=== PATIENT | female | born 1985 | race Caucasian/White ===

== ENCOUNTER 2024-02-09 12:49 | Outpatient (OUT) | payer OTHER, SELFPAY ==
--- NOTE | 2024-02-09 12:53 | US_ITS ---
The [address] [address] Patient Name: AKBAR FREEMAN MRN: [id number] date: 1985 Sex: F Assigned Patient Location: Current Patient Location: Accession/Order Number: [id number] Exam Date: 02/09/2024 13:15 Report Date: 02/12/2024 15:24 At the request of: BRITTNEY TREJO Procedure: US pelvis w/ transvaginal EXAMINATION: US pelvis w/ transvaginal HISTORY: HEAVY MENSTRUAL BLEEDING N92.0 COMPARISON: No relevant comparison available. TECHNIQUE: Transabdominal and/or transvaginal sonographic examination was performed as indicated by examination type. FINDINGS: UTERUS: Normal size and appearance. Uterus size: 9.8 x 5.3 x 6.8 cm ENDOMETRIUM: Normal homogeneous appearance. Endometrial thickness: 8 mm RIGHT OVARY: Normal size and appearance. Duplex Doppler demonstrates normal waveform and flow; resistive index 0.5. Ovary size: 2.8 x 2.4 x 1.6 cm LEFT OVARY: Not seen. No suspicious adnexal findings. CUL-DE-SAC: Unremarkable. No significant free fluid. BLADDER: Unremarkable. OTHER: None. US/US pelvis w/ transvaginal IMPRESSION: 1. Unremarkable uterus, endometrium, and right ovary. Left ovary could not be seen. Electronically authenticated by: TENNILLE LIGHT Date: 02/12/2024 15:24
[2024-02-09 13:07] LABS: Basophils Absolute Auto 0.1 10^3/uL (0.0-0.1); Basophils Percent Auto 0.7 % (0.2-2.0); Eosinophils Absolute Auto 0.5 10^3/uL (0.0-0.7); Hematocrit 42.9 % (36.0-48.0); Hemoglobin 13.8 g/dL (12.0-16.0); Immature Granulocytes Abs Auto 0.04 10^3/uL (0.00-0.03); Immature Granulocytes Pct Auto 0.4 % (0.0-0.5); Lymphocytes Absolute Auto 2.3 10^3/uL (1.2-3.8); Lymphocytes Percent Auto 24.9 % (20.5-60.0); Mean Corpuscular HGB Conc 32.2 g/dL (29.9-35.2); Mean Corpuscular Hemoglobin 27.8 pg (26.7-34.0); Mean Corpuscular Volume 86.5 fL (81.0-99.0); Mean Platelet Volume 11.3 fL (9.5-13.5); Monocytes Absolute Auto 0.8 10^3/uL (0.3-0.8); Monocytes Percent Auto 8.7 % (1.7-12.0); Neutrophils Absolute Auto 5.6 10^3/uL (1.4-6.5); Neutrophils Percent Auto 60.3 % (43.0-75.0); Platelet Count 241 10^3/uL (150-450); Red Blood Count 4.96 10^6/uL (4.20-5.40); Red Cell Distribution Width 15.9 % (11.0-15.0); White Blood Count 9.4 10^3/uL (4.0-11.0)
[2024-02-09 13:57] LABS: Estimated Average Glucose 123 mg/dL; Glycohemoglobin A1C 5.9 % (4.5-6.2)
[2024-02-09 15:26] LABS: Alanine Aminotransferase 33 U/L (14-59); Albumin Globulin Ratio 0.8; Alkaline Phosphatase 63 U/L (46-116); Anion Gap 11.3; Aspartate Amino Transferase 13 U/L (15-37); BUN Creatinine Ratio 11.1; Bilirubin Total 0.2 mg/dL (0.2-1.0); Calcium 8.5 mg/dL (8.5-10.1); Carbon Dioxide 27.6 mmol/L (21.0-32.0); Chloride 103 mmol/L (98-107); Chol HDL Ratio 5.6; Cholesterol 207 mg/dL (<=200); Estimated GFR (African America >60 (>=60); Estimated GFR (Non-African Ame >60 (>=60); Free T3 2.33 pg/mL (2.18-3.98); Glucose 102 mg/dL (74-106); HDL Cholesterol 37 mg/dL (40-60); Potassium 3.9 mmol/L (3.5-5.1); Sodium 138 mmol/L (136-145); Thyroid Stimulating Hormone 1.522 uIU/mL (0.358-3.740); Triglycerides 149 mg/dL (<=150); VLDL CHOLESTEROL 29.8 mg/dL
== END 2024-02-09 12:50 | disposition home or self-care (01) ==
LOC: US 12:49
PROVIDERS: PCP Nurse Practitioner Family; Visit Provider Nurse Practitioner Family
DX: Z00.00 Encounter for general adult medical examination without abnormal findings (principal); N92.0 Excessive and frequent menstruation with regular cycle
CPT/HCPCS: 36415; 76830; 76856; 80053; 80061; 83036; 83525; 84436; 84443; 84481; 85025

== ENCOUNTER 2024-03-13 05:13 | Emergency (ER) | payer OTHER, SELFPAY ==
[2024-03-13 05:17] VITALS: BP 145/97; PULSE 90; TEMP 37.1; O2SAT 98; BMI 39.4
--- NOTE | 2024-03-13 05:32 | CT_ITS ---
[address] [address] Patient Name: AKBAR FREEMAN MRN: [id number] date: 1985 Sex: F Assigned Patient Location: ER Current Patient Location: ER Accession/Order Number: [id number] Exam Date: 03/13/2024 05:58 Report Date: 03/13/2024 06:26 At the request of: NICKY MARKER Procedure: CT abdomen pelvis w con EXAMINATION: CT abdomen pelvis w con HISTORY: right side abd pain and diarrhea COMPARISON: CT abdomen pelvis 09/23/2021 TECHNIQUE: Axial, Coronal, and Sagittal images were obtained without and/or with IV contrast as indicated by examination type. Dose reduction techniques were achieved by using automated exposure control and/or adjustment of mA and/or kV according to patient size and/or use of iterative reconstruction technique. FINDINGS: LUNG BASES: No visible pulmonary or pleural disease. LIVER: No enlargement, atrophy, suspicious density, or significant focal lesion. BILIARY: No dilatation or calcification. PANCREAS: No lesion, fluid collection, or abnormal duct dilatation. SPLEEN: No enlargement or focal lesion. ADRENALS: No mass or enlargement. KIDNEYS: Stable cortical defect involving posterior lateral mid body of left kidney; possible prior wedge resection. No mass, obstruction, or calcification. BOWEL/MESENTERY: Relatively empty colon but there still appears to be L3 compression wall thickening throughout its length, predominantly involving the distal descending and sigmoid colon. Unremarkable stomach and small bowel. Normal appendix. AORTA/VASCULAR: No aneurysm or dissection. RETROPERITONEUM: No mass or adenopathy. LYMPH NODES: No adenopathy. URINARY BLADDER: No visible focal wall thickening, lesion, or calculus. PELVIC ORGANS: No visible mass. Pelvic organs appropriate for patient age. ABDOMINAL WALL: No mass or hernia. BONES: No bony lesion or fracture. OTHER: Negative. CT/CT abdomen pelvis w con IMPRESSION: 1. Mild colitis. No bowel obstruction. Electronically authenticated by: TENNILLE LIGHT Date: 03/13/2024 06:26
--- NOTE | 2024-03-13 05:49 | ED_ITS ---
HPI - Nausea/Vomiting/Diarrhea General Chief complaint: Nausea/Vomiting/Diarrhea Stated complaint: blood in stool, Time Seen by Provider: 03/13/24 05:21 Source: patient Mode of arrival: walk-in Limitations: no limitations History of Present Illness HPI Narrative: This 38-year-old female presents for evaluation of nausea, diarrhea and rectal pain. The patient states she started having loose stools yesterday around noon and since that time has had multiple episodes of diarrhea that is mucousy in nature with small amount of blood mixed in with mucus. She denies any fever or chills. She has some left lower quadrant abdominal pain and earlier the week had right sided abdominal pain that was in the right lower quadrant and radiated into the right upper abdomen. She states she has had diarrhea so many times that she has rectal pain and burning. She has never had any hemorrhoids. She has never had a colonoscopy. She states she has a family history of Crohn's disease but has never been diagnosed with Crohn's herself. She is not on any GLP-1 medications. She denies any chronic daily medication use. She has not recently traveled out of the country or been exposed anybody with a diarrheal illness to the best of her knowledge. Related Data Home Medications ?Medication ?Instructions ?Recorded ?Confirmed albuterol sulfate 2.5 mg/3 mL mg 03/13/24 (0.083 %) solution for nebulization albuterol sulfate 90 mcg/actuation inhalation 03/13/24 aerosol inhaler budesonide 160 mcg-glycopyr 9 inh inhalation 03/13/24 mcg-formot 4.8 mcg/actuation HFA inhaler (Breztri Aerosphere) omeprazole 40 mg capsule,delayed mg 03/13/24 release tiotropium 2.5 mcg-olodaterol 2.5 inhalation 03/13/24 mcg/actuation mist for inhalation (Stiolto Respimat) Allergies Allergy/AdvReac Type Severity Reaction Status Date / Time No Known Drug Allergies Allergy Verified 03/13/24 05:19 Review of Systems ROS Status of ROS 10 or more systems reviewed and unremark able except as noted in history and below PFSH PFSH Social History Little interest or pleasure in doing things: not at all Feeling down, depressed, or hopeless: not at all Exam Narrative Exam Narrative: Vital signs and Nursing Notes reviewed: Patient is afebrile with a normal pulse, blood pressure is mildly elevated 145/97, she is not hypoxic with pulse ox of 98% on room air General: Awake, alert, oriented, tearful overweight female, no respiratory distress HEENT: Normocephalic atraumatic, mucous membranes are moist and pink, eyes are clear, normal conjunctiva, vision is grossly intact Neck: Supple, no meningeal signs, no anterior or posterior cervical lymphadenopathy Chest: Lungs are clear to auscultation with good air entry, there is no wheezing rhonchi or rales appreciated no accessory muscle use, patient is speaking in complete sentences-no chest wall tenderness to palpation CVS: Regular rate and rhythm S1-S2, no murmurs rubs or gallops, pulses are brisk and equal bilaterally ABD: Obese, soft, nondistended, there is tenderness in the left lower quadrant, right lower quadrant and right upper quadrant with voluntary guarding in the right upper quadrant, there are no pulsatile masses, visual inspection of the rectum was normal without any notable hemorrhoids fissures or bleeding Extremities: Moving all extremities, no lower extremity tenderness or swelling noted, negative Homans' sign, pulses are brisk and equal bilaterally Skin: Normal in appearance without rash,pallor, petechiae or purpura Neuro: No focal deficits Constitutional Vital Signs, click to edit/add: Last Vital Signs Temp 98.7 F 03/13/24 05:17 Pulse 90 03/13/24 05:17 Resp 20 03/13/24 05:17 BP 145/97 H 03/13/24 05:17 Pulse Ox 98 03/13/24 05:17 O2 Del Method Room Air 03/13/24 05:17 Course Vital Signs Vital signs: Vital Signs Temperature 98.7 F 03/13/24 05:17 Pulse Rate 90 03/13/24 05:17 Respiratory Rate 20 03/13/24 05:17 Blood Pressure 145/97 H 03/13/24 05:17 Pulse Oximetry 98 03/13/24 05:17 Oxygen Delivery Method Room Air 03/13/24 05:17 Temperature 98.7 F 03/13/24 05:17 Pulse Rate 90 03/13/24 05:17 Respiratory Rate 20 03/13/24 05:17 Blood Pressure 145/97 H 03/13/24 05:17 Pulse Oximetry 98 03/13/24 05:17 Oxygen Delivery Method Room Air 03/13/24 05:17 MDM - Nausea/Vomiting/Diarrhea MDM Narrative Medical decision making narrative: This 38-year-old female presents for evaluation of abdominal cramps with diarrhea that started yesterday around noon. She has had multiple episodes of mucousy diarrhea with some blood tinged mucus. She is having severe tenesmus and abdominal cramps and pain with bowel movements. She has not had a fever. She denies any travel out of the country or recent antibiotic use. She left work to come to the emergency department because she had had so many bowel movements and has been incontinent of stool several times throughout the day and night yesterday. An IV was placed and she was medicated with IV fluids, Toradol Bentyl and Zofran. Routine labs are reviewed. Her white count is mildly elevated at 13.4. Hemoglobin is stable at 13.6. CT scan of the abdomen pelvis which is included in the body of this report shows evidence of colitis without diverticulitis or bowel obstruction. Comprehensive metabolic profile is normal with exception of a mildly low CO2 indicating some degree of dehydration. She has a normal lactic acid. C. difficile is pending at the time of this dictation and will be signed out to the incoming physician at 7 AM. Anticipate she will be able to be discharged home with antimotility agents Bentyl and Zofran with recommendation for clear liquid diet with slow advancement as tolerated Medical Records Medical records narrative: [place] [address] CT Scan Report Signed Patient: AKBAR FREEMAN MR#: [id number] : 1985 Acct:[id number] Age/Sex: 38 / F ADM Date: 03/13/24 Loc: ER Attending Dr: Ordering Physician: Nicky Freitas Date of Service: 03/13/24 Procedure(s): CT abdomen pelvis w con Accession Number(s): [id number] cc: BRITTNEY TREJO ~ [facility] [place] [id number] Patient Name: AKBAR FREEMAN MRN: [id number] date: 1985 Sex: F Assigned Patient Location: ER Current Patient Location: ER Accession/Order Number: [id number] Exam Date: 03/13/2024 05:58 Report Date: 03/13/2024 06:26 At the request of: NICKY MARKER Procedure: CT abdomen pelvis w con EXAMINATION: CT abdomen pelvis w con HISTORY: right side abd pain and diarrhea COMPARISON: CT abdomen pelvis 09/23/2021 TECHNIQUE: Axial, Coronal, and Sagittal images were obtained without and/or with IV contrast as indicated by examination type. Dose reduction techniques were achieved by using automated exposure control and/or adjustment of mA and/or kV according to patient size and/or use of iterative reconstruction technique. FINDINGS: LUNG BASES: No visible pulmonary or pleural disease. LIVER: No enlargement, atrophy, suspicious density, or significant focal lesion. BILIARY: No dilatation or calcification. PANCREAS: No lesion, fluid collection, or abnormal duct dilatation. SPLEEN: No enlargement or focal lesion. ADRENALS: No mass or enlargement. KIDNEYS: Stable cortical defect involving posterior lateral mid body of left kidney; possible prior wedge resection. No mass, obstruction, or calcification. BOWEL/MESENTERY: Relatively empty colon but there still appears to be L3 compression wall thickening throughout its length, predominantly involving the distal descending and sigmoid colon. Unremarkable stomach and small bowel. Normal appendix. AORTA/VASCULAR: No aneurysm or dissection. RETROPERITONEUM: No mass or adenopathy. LYMPH NODES: No adenopathy. URINARY BLADDER: No visible focal wall thickening, lesion, or calculus. PELVIC ORGANS: No visible mass. Pelvic organs appropriate for patient age. ABDOMINAL WALL: No mass or hernia. BONES: No bony lesion or fracture. OTHER: Negative. CT/CT abdomen pelvis w con IMPRESSION: 1. Mild colitis. No bowel obstruction. Lab Data Attestation: I reviewed the patient's lab results. Labs: Lab Results 03/13/24 Range/Units 05:45 WBC 13.4 H (4.0-11.0) 10^3/uL RBC 4.98 (4.20-5.40) 10^6/uL Hgb 13.6 (12.0-16.0) g/dL Hct 41.3 (36.0-48.0) % MCV 82.9 (81.0-99.0) fL MCH 27.3 (26.7-34.0) pg MCHC 32.9 (29.9-35.2) g/dL RDW 15.3 H (11.0-15.0) % Plt Count 268 (150-450) 10^3/uL MPV 11.9 (9.5-13.5) fL Neut % (Auto) 69.6 (43.0-75.0) % Lymph % (Auto) 18.4 L (20.5-60.0) % [place] % (Auto) 6.9 (1.7-12.0) % Eos % (Auto) 4.1 (0.9-7.0) % Baso % (Auto) 0.6 (0.2-2.0) % Neut # (Auto) 9.3 H (1.4-6.5) 10^3/uL Lymph # (Auto) 2.5 (1.2-3.8) 10^3/uL [place] # (Auto) 0.9 H (0.3-0.8) 10^3/uL Eos # (Auto) 0.6 (0.0-0.7) 10^3/uL Baso # (Auto) 0.1 (0.0-0.1) 10^3/uL Abs Immat Gran (auto) 0.06 H (0.00-0.03) 10^3/uL Imm/Tot Granulo (auto) 0.4 (0.0-0.5) % Sodium 136 (136-145) mmol/L Potassium 3.7 (3.5-5.1) mmol/L Chloride 103 (98-107) mmol/L Carbon Dioxide 20.5 L (21.0-32.0) mmol/L Anion Gap 16.2 BUN 17.0 (7.0-18.0) mg/dL Creatinine 0.94 (0.55-1.02) mg/dL Est GFR ( Amer) >60 (>=60 mL/min/1.73m^2) Est GFR (Non-Af Amer) >60 (>=60 mL/min/1.73m^2) BUN/Creatinine Ratio 18.1 Glucose 138 H (74-106) mg/dL Lactate 1.1 (0.4-2.0) mmol/L Calcium 9.3 (8.5-10.1) mg/dL Total Bilirubin 0.2 (0.2-1.0) mg/dL AST 21 (15-37) U/L ALT 30 (14-59) U/L Alkaline Phosphatase 69 (46-116) U/L Total Protein 7.4 (6.4-8.2) g/dL Albumin 3.2 L (3.4-5.0) g/dL Globulin 4.2 g/dL Albumin/Globulin Ratio 0.8 Discharge Plan Discharge Patient Disposition: Still a Patient
--- OUTSIDE RECORDS SUMMARY | 2024-03-13 05:56 | XMS_ITS | CCD ---
Author Organization [facility] Inform ion Partnership [facility] Care Team Providers Care Automobile Contract Clerk Name Role Phone Yash Simpson. Primary Care Physician REQUEST, NONE LISTED Primary Care Unavaila ble MARKER ., DR SAUNDERS Admitting Unavailable MARKER ., DR SAUNDERS Consulting Unavailable MARKER ., DR SAUNDERS Attending Unavailable DRISS BREWSTER Consulting Unavailable CLAUDIA GIMENEZ Consulting Unavailable REQUEST, NONE LISTED Primary Care Unavaila ble MISC, DR REHMAN Admitting Unavailable MISC, DR REHMAN Consulting Unavailable MISC, DR REHMAN Attending Unavailable JULIANE HWANG Consulting Unavailable REQUEST, DR HEBERT LISTED Primary Care Unavaila ble MISC, DR REHMAN Admitting Unavailable MISC, DR REHMAN Attending Unavailable Wally Joseph Attending Unavailab Wally Osei Admitting Unavailab nano CHRISTIE FAMILY, PHYSICIAN Primary Care Unavailable NO FAMILY, PHYSICIAN Primary Care Provider Maci Joseph, JHON Bazzi Attending Provider Yash Simpson MD Primary Care Provider PROVIDER, UNKNOWN Admitting Unavailable PROVIDER, UNKNOWN Attending Unavailable BRITTNEY TREJO Primary Care Unavailable LOTUS KAPADIA Referring Unavailable Medications Current Medications Medication Drug Class(es) Dates Sig (Normalized) Sig (Original) albuterol 90 mcg/inh inhalation powder (1 source) Start: 02-06-2020 take 1 puff(s) by inhalation every six hours albuterol 90 mcg/inh inhalation powder puff(s), Inhalation, q6hr, Refill(s) 0 Start Date: 02/06/20 Status: Ordered 24 hr mirabegron 50 mg extended release oral tablet (2 sources) beta3-Adrenergic Agonist Start: 10-14-2021 End: 10-09-2022 take 1 tablet by mouth once daily Myrbetriq 50 mg oral tablet, extended release 50 mg = 1 tab(s), Oral, Daily, X 90 day(s), # 90 tab(s), Refills(s) 3, Pharmacy: [id number], 150, cm, 10/14/21 8:14:00 EDT, Height/Length Dosing, 82.1, kg, 10/14/21 8:14:00 EDT, Weight Dosing Start Date: 10/14/21 Stop Date: 10/09/22 Status: Ordered 60 actuat olodaterol 0.0025 mg/actuat / tiotropium 0.0025 mg/actuat inhalation spray (2 sources) Anticholinergic, beta2-Adrenergic Agonist Start: 05-28-2020 Stiolto Respimat 2.5 mcg-2.5 mcg inhalation aerosol puff(s), Inhalation, BID, Refills(s) 0 Start Date: 05/28/20 Status: Ordered Start: 11-10-2019 tiotropium-olo daterol (STIOLTO RESPIMAT) 2.5-2.5 mcg/actuation puff(s), Inhalation, BID, Refills(s) 0 0 11/10/2019 Active Comment on above: puff(s), Inhalation, BID, Refills(s) 0 Stiolto Respimat 2.5 mcg-2.5 mcg inhalation aerosol (1 source) Start: 05-28-2020 Stiolto Respimat 2.5 mcg-2.5 mcg inhalation aerosol puff(s), Inhalation, BID, Refills(s) 0 Start Date: 05/28/20 Status: Ordered Completed/Discontinued Medications Medication Drug Class(es) Dates Sig (Normalized) Sig (Original) acetaminophen 500 mg oral tablet (1 source) Start: 11-04-2020 take 2 tablets by mouth every eight hours as needed acetaminophen (TYLENOL EXTRA STRENGTH) 500 mg tablet Take 2 tablets by mouth every 8 hours as needed for Pain. 30 tablet 0 11/04/2020 Active Comment on above: Take 2 tablets by [facility] every 8 hours as needed for Pain. 200 actuat albuterol 0.09 mg/actuat dry powder inhaler (3 sources) beta2-Adrenergic Agonist Start: 02-06-2020 take 1 puff(s) by inhalation every six hours albuterol sulfate 90 mcg/actuation breath activated powder inhaler puff(s), Inhalation, q6hr, Refill(s) 0 0 02/06/2020 Active Start: 02-06-2020 take 1 puff(s) by in halation every six hours albuterol 90 mcg/inh inhalation powder puff(s), Inhalation, q6hr, Refill(s) 0 Start Date: 02/06/20 Status: Ordered Start: 10-10-2019 ALBUTEROL INHA LATION Comment on above: puff(s), Inhalation, q6hr, Refill(s) 0 Norethindrone (1 source) Start: 02-10-2020 Norethindrone, Contraceptive, (INCASSIA) 0.35 mg tablet omeprazole 20 mg delayed release oral capsule (3 sources) Proton Pump Inhibitor Start: 02-10-2020 omeprazole (PRILOSEC) 20 mg capsule Start: 02-06-2020 omeprazole Ora l, Daily, Refills(s) 0 Start Date: 02/06/20 Status: Ordered Problems Problem Classification Problem Date Documented Da te Episodic/Chronic Abdominal pain (4 sources) Abdominal pain; Translations: [Right flank pain] 02-06-2020 Episodic Cancer of kidney and renal pelvis (4 sources) Malignant tumor of kidney; Translations: [Malignant neoplasm of unspecified kidney, except renal pelvis] Onset: 10-14-2021 Chronic Genitourinary symptoms and ill-defined conditions (8 sources) Mixed incontinence; Translations: [Genuine stress incontinence] Onset: 10-14-2021 Chronic Genitourinary symptoms and ill-defined conditions (10 sources) Sensation as if bladder still full; Translations: [Feeling of incomplete bladder emptying] Onset: 10-14-2021 Episodic Other connective tissue disease (4 sources) Pain in right arm; Translations: [PAIN IN RIGHT ARM] Onset: 11-07-2022 Episodic Other connective tissue disease (3 sources) Myalgia, other site; Translations: [MYALGIA OTHER SITE] Onset: 10-25-2022 Episodic Other diseases of bladder and urethra (4 sources) Urethral stricture; Translations: [Other urethral stricture, female] Onset: 10-14-2021 Episodic Other diseases of kidney and ureters (2 sources) Renal mass 08-30-2020 Chronic Other injuries and conditions due to external causes (1 source) Unspecified injury of muscle, fascia and tendon of other parts of biceps, right arm, initial encounter; Translations: [UNS INJ M AND T OTH PRT BIC RT ARM INIT] Onset: 10-27-2022 Episodic Other nutritional; endocrine; and metabolic disorders (1 source) Body mass index 40+ - severely obese; Translations: [Morbid (severe) obesity due to excess calories] Onset: 11-04-2020 11-04-2020 Chronic Other screening for suspected conditions (not mental disorders or infectious disease) (1 source) Encounter for screening mammogram for malignant neoplasm of breast; Translations: [Encounter for screening mammogram for malignant neoplasm of breast] Onset: 02-27-2024 Episodic Substance-related disorders (1 source) Nicotine dependence; Translations: [Nicotine dependence, unspecified, uncomplicated] Onset: 11-25-2020 11-25-2020 Chronic Unclassified (2 sources) Finding of sensation of bladder 04-11-2021 Unclassified (1 source) Lateral epicondylitis, right elbow; Translations: [Lateral epicondylitis, right elbow] Onset: 01-29-2023 Urinary tract infections (2 sources) Urinary tract infectious disease 04-11-2021 Episodic Results Test Name Value Interpretation Reference Range Facil ity MG MAMMO SCREEN BILAT ANNALISA W /CADon 03-03-2024 MG MAMMO SCREEN BILAT ANNALISA W/CAD EXAM: BILATERAL SCREENING MAMMOGRAM W/TOMOSYNTHESIS AND CAD CLINICAL HISTORY: Patient is 38 years old and is seen for screening. The patient has a history of kidney cancer at age 36. The patient has no family history of breast cancer. COMPARISON: This is a baseline study. TECHNIQUE: The following mammographic views were obtained: bilateral CC with tomosynthesis, MLO with tomosynthesis and XCCL with tomosynthesis. Computer-aided detection was utilized by the radiologist in the interpretation of this examination. MAMMOGRAM FINDINGS: There are scattered areas of fibroglandular densities. There are multiple bilateral circumscribed masses which is typically a benign pattern. IMPRESSION: There is no mammographic evidence of malignancy. Routine screening mammogram in 1 year is recommended. BI-RADS Category 2: Benign RISK ASSESSMENT: Estimated lifetime breast cancer risk: Average (less than 15%, as per the Tyrer-Cuzick/BEAR model) NCI Lifetime Risk Score: 9.9% Normal [facility] MRI ELBOW RT WO CONon 2022 MRI ELBOW RT WO CON EXAM: MRI ELBOW RT WO CON HISTORY: Pain in right arm injured right arm at work on machine. COMPARISON: Right arm x-rays 10/25/2022. TECHNIQUE: Multi planar, multisequence MR imaging of the right elbow without contrast. Findings: Bones and cartilage: No acute fracture or malalignment. No focal bone marrow edema. No articular erosions. No osteochondral abnormality. No joint effusion. Muscles and tendons: The biceps, common flexor, brachialis and biceps brachii tendons are intact. There is a partial tear involving the origin of the common extensor tendon measuring approximately 0.4 x 0.2 cm. Ligaments: The radial and ulnar collateral ligaments are grossly intact within the limits of this nonarthrogram study. Miscellaneous: The visualized portions of the median, ulnar and radial nerves are unremarkable. IMPRESSION: 1. Partial tearing of the origin of the common extensor tendon. Electronically authenticated by: JULIANE HWANG Date: 2022-11-07 10:53 Normal [facility] XR ELBOW RT MIN 3 VIEWSon XR ELBOW RT MIN 3 VIEWS EXAM: XR ELBOW RT MIN 3 VIEWS HISTORY: Right elbow pain; technologist notes state clips at work and heard a pop in the right elbow and right elbow pain that radiates into the shoulder. COMPARISON: Right humerus series dated 10/25/2022. TECHNIQUE: Routine 3 view right elbow series. FINDINGS: The bony alignment and mineralization are normal. There is no fracture. The joint spaces are normal. There are no degenerative/arthriti c changes. There is no joint effusion at the elbow. No soft tissue abnormality is seen. IMPRESSION: Unremarkable right elbow series. MRI of the right elbow would be performed if there is clinical concern for internal derangement. Electronically authenticated by: DRISS BREWSTER Date: 2022-10-25 04:24 Normal [facility] XR HUMERUS RT MIN 2 Von 05- XR HUMERUS RT MIN 2 V EXAM: XR HUMERUS RT MIN 2 V HISTORY: Pain of right elbow joint COMPARISON: Right shoulder x-ray performed 07/17/2020. TECHNIQUE: 2 views of the right humerus are obtained. FINDINGS: There is no focal soft tissue abnormality. Osseous mineralization is within normal limits. No acute fracture or dislocation is identified. The glenohumeral and elbow joints appear grossly maintained. IMPRESSION: No acute fracture or dislocation. Electronically authenticated by: CLAUDIA GIMENEZ Date: 2022-10-25 04:23 Normal [facility] Patient Educationon 10-15-19 Patient Education Obstetrics and Gynecology Overactive Bladder, Adult Overactive bladder refers to a condition in which a person has a sudden need to pass urine. The person may leak urine if he or she cannot get to the bathroom fast enough (urinary incontinence). A person with this condition may also wake up several times in the night to go to the bathroom. Overactive bladder is associated with poor nerve signals between your bladder and your brain. Your bladder may get the signal to empty before it is full. You may also have very sensitive muscles that make your bladder squeeze too soon. These symptoms might interfere with daily work or social activities. What are the causes? This condition may be associated with or caused by: ? Urinary tract infection. ? Infection of nearby tissues, such as the prostate. ? Prostate enlargement. ? Surgery on the uterus or urethra. ? Bladder stones, inflammation, or tumors. ? Drinking too much caffeine or alcohol. ? Certain medicines, especially medicines that get rid of extra fluid in the body (diuretics). ? Muscle or nerve weakness, especially from: ? A spinal cord injury. ? Stroke. ? Multiple sclerosis. ? Parkinson's disease. ? Diabetes. ? Constipation. What increases the risk? You may be at greater risk for overactive bladder if you: ? Are an older adult. ? Smoke. ? Are going through menopause. ? Have prostate problems. ? Have a neurological disease, such as stroke, dementia, Parkinson's disease, or multiple sclerosis (MS). ? Eat or drink things that irritate the bladder. These include alcohol, spicy food, and caffeine. ? Are overweight or obese. What are the signs or symptoms? Symptoms of this condition include: ? Sudden, strong urge to urinate. ? Leaking urine. ? Urinating 8 or more times a day. ? Waking up to urinate 2 or more times a night. How is this diagnosed? Your health care provider may suspect overactive bladder based on your symptoms. He or she will diagnose this condition by: ? A physical exam and medical history. ? Blood or urine tests. You might need bladder or urine tests to help determine what is causing your overactive bladder. You might also need to see a health care provider who specializes in urinary tract problems (urologist). How is this treated? Treatment for overactive bladder depends on the cause of your condition and whether it is mild or severe. You can also make lifestyle changes at home. Options include: ? Bladder training. This may include: ? Learning to control the urge to urinate by following a schedule that directs you to urinate at regular intervals (timed voiding). ? Doing Kegel exercises to strengthen your pelvic floor muscles, which support your bladder. Toning these muscles can help you control urination, even if your bladder muscles are overactive. ? Special devices. This may include: ? Biofeedback, which uses sensors to help you become aware of your body's signals. ? Electrical stimulation, which uses electrodes placed inside the body (implanted) or outside the body. These electrodes send gentle pulses of electricity to strengthen the nerves or muscles that control the bladder. ? Women may use a plastic device that fits into the vagina and supports the bladder (pessary). ? Medicines. ? Antibiotics to treat bladder infection. ? Antispasmodics to stop the bladder from releasing urine at the wrong time. ? Tricyclic antidepressants to relax bladder muscles. ? Injections of botulinum toxin type A directly into the bladder tissue to relax bladder muscles. ? Lifestyle changes. This may include: ? Weight loss. Talk to your health care provider about weight loss methods that would work best for you. ? Diet changes. This may include reducing how much alcohol and caffeine you consume, or drinking fluids at different times of the day. ? Not smoking. Do not use any products that contain nicotine or tobacco, such as cigarettes and e-cigarettes. If you need help quitting, ask your health care provider. ? Surgery. ? A device may be implanted to help manage the nerve signals that control urination. ? An electrode may be implanted to stimulate electrical signals in the bladder. ? A procedure may be done to change the shape of the bladder. This is done only in very severe cases. Follow these instructions at home: Lifestyle ? Make any diet or lifestyle changes that are recommended by your health care provider. These may include: ? Drinking less fluid or drinking fluids at different times of the day. ? Cutting down on caffeine or alcohol. ? Doing Kegel exercises. ? Losing weight if needed. ? Eating a healthy and balanced diet to prevent constipation. This may include: ? Eating foods that are high in fiber, such as fresh fruits and vegetables, whole grains, and beans. ? Limiting foods that are high in fat and processed sugars, such as fried and sweet foods. General instructions ? Take ove (more content not included)... Normal [facility] Urology Office/Clinic Noteon 10-14-2021 Urology Office/Clinic Note Chief Complaint 6 month follow up HPI Staff Leah is here today for a 6 month follow up with XR chest done on 05/01/[address] abd/pelvis done on 09/23/21.Impression of XR of chest showed stable right middle lobe opacity, chronic atelectasis/scar favored.CT abd/pelvis showed stable change of partial left nephrotomy without evidence of local recurrence of metastatic disease in abdomen or pelvis.Previous DX: abdominal pain, feeling of incomplete bladder emptying, incontinence without sensory awareness, mixed incontinence, other urethral stricture female, renal cell carcinoma, renal mass, rt flank pain, urgency of urination,urinary frequency,UTI. S/p Partial nephrectomy 11/04/20, urodynamics 06/01/20. PVR done on 04/11/21 was 21ml. PVR today was 0ml. Dysuria: _Denies Incomplete bladder emptying: _pt states she is not emptying Hematuria: _Denies Frequency: _every 30 minutes Urgency: _Denies Nocturia: _Denies Stream: _varies and sprays all over. Leaking: _yes Post void dripping: _yes Wearing pads/ Depends: _yes changes 2-3 times a day. Urge incontinence: _yes Stress incontinence: _yes coughing or sneezing Incontinence without Sensory Awareness: _Denies Abdominal pain: _Denies Flank pain: _pt states she is feeling a sharp pain in her stomach that migrates to her back by her kidneys. Sexual complaints: _ History of Present Illness I have reviewed and verified the staff HPI to be accurate for this encounter. Review of Systems PHQ Score Initial Depression Screen Score: 0 ROS - Provider Constitutional: denies weight loss, denies hot flashes. Eyes: denies eye problems. Gastrointestinal: denies nausea, denies vomiting. Cardiovascular: denies chest pain or angina. Integumentary: no dryness Musculoskeletal: denies musculoskeletal symptoms. ENMT: denies otolaryngeal symptoms. Respiratory: no shortness of breath. Heme/Lymph: denies easy bleeding tendency, denies easy bruising tendency. Psychiatric: no confusion, no anxiety. Genitourinary: denies vaginal discharge, denies incontinence, denies dysuria, denies hematuria, denies urinary frequency, denies amenorrhea, denies menorrhagia, denies abnormal bleeding, denies pelvic pain, denies genital sores, and denies decreased libido. Physical Exam Vitals & Measurements HR: 97(Peripheral) RR: 16 BP: 139/91 HT: 150.0 cm HT: 150 cm WT: 82.1 kg WT: 82.1 kg BMI: 36.49 General Appearance: alert , no acute distress, well nourished, well developed female. Genitourinary: bladder nonpalpable, no flank pain. Assessment/Plan 1. Renal cell carcinoma (C64.9: Malignant neoplasm of unspecified kidney, except renal pelvis) S/p Partial nephrectomy 11/04/20. Patient is here today for a 6 month f/u and to review results of CT on 09/23/21, testing shows abd/pelvis showed stable change of partial left nephrotomy without evidence of local recurrence of metastatic disease in abdomen or pelvis. Results from [facility] shows 0.85 Creatine, which shows a positive functioning of patient's kidney. 2. Mixed incontinence (N39.46: Mixed incontinence) Ongoing. Patient reports both stress and urge incontinence. States she is changing her pad 2-3x a day. During work, she changes her pads every 2 hours. 3. Feeling of incomplete bladder emptying (R39.14: Feeling of incomplete bladder emptying) PVR last visit was 21mL, today it reads-0mL. 4. Other urethral stricture, female (N35.82: Other urethral stricture, female) S/p Cysto/UD 06/01/2020. Patient shares she experiences pain, and dysuria related sx in the night. this is from a full bladder not infection. 5. Urinary frequency (R35.0: Frequency of micturition) Patient states she is going to the bathroom every 30 minutes. Patient shares that she has several episodes of rushing to void. Mentioned to patient to start medication to improve frequency, urgency and leaking accidents. Educated patient this medication would not remediate her stress incontinence, only her episodes of frequency and urge incontinence. Will send prescription to [facility] in [place]. Follow-up With When Contact Information Vidal GALICIA MD, URL In 3 months 01/14/2022 EDT [facility] [address] [place] [address]- Additional Instructions: Patient Education Urinary Incontinence Overactive Bladder, Adult I, Bebe Wright, personally scribed for Dr. Galicia on 10/14/2021 08:48:14. . Documentation recorded by the Bebe jones, accurately reflects the services(s) I performed and decisions made by me. Authenticated by Dr. Galicia on 10/14/2021 08:52:26. Problem List/Past Medical History Ongoing Abdominal pain Feeling of incomplete bladder emptying Incomplete bladder emptying Incontinence without sensory awareness Mixed incontinence Other urethral stricture, female Renal cell carcinoma Renal mass Rt flank pain Stress incontinence Urgency of urination Urinary frequency UTI (urinary tr (more content not included)... [facility] Comment on above: Result Comment: Elec tronically Signed By: Vidal GALICIA MD\.br\Date and Time Signed: 10/14/21 08:52 EDT\.br\Electronically Co-Signed By: Bebe Wright\.br\Date and Time Co-Signed: 10/14/21 08:48 EDT Lab Reportson 09-27-2021 Lab Reports [id number] .00CD:127 [facility] RAD - CT Reporton 09-27-20[address] RAD - CT Report [id number] .00CD:127 [facility] Pre-Certification Formon Pre-Certification Form [id number] .00CD:127 [facility] Reminderson 09-09-2021 Reminders - From: Mitali Clark To: [facility] - Recalls Galicia; Sent: 04/25/2021 13:46:17 EST Show up: 08/23/2021 14:46:00 EDT Subject: CT abd/pel with contrast Due Date/Time: 09/23/2021 14:46:00 EDT Reminder Message Pt. needs CT AP w/ contrast prior to 10/14/2021 appt. left vm for pt to call office order sent to [facility] Lab Reportson 04-25-2021 Lab Reports [id number] .00CD:127 [facility] RAD - CT Reporton 04-25-2021 RAD - CT Report [id number] .00CD:127 [facility] RAD - MISCon 04-25-2021 RAD - MISC [id number] .00CD:127 [facility] Pre-Certification Formon Pre-Certification Form [id number] .00CD:127 [facility] Reminderson 04-22-2021 Reminders - From: Ashanti Arellano To: [facility] - Clinical; Sent: 04/11/2021 09:46:13 EDT Show up: 04/15/2021 09:46:00 EDT Subject: CT scan and CXR Due Date/Time: 04/18/2021 09:46:00 EST Reminder/Recall Order was faxed to [place] [facility] for CT scan Abd/pelvis with and CXR to be scheduled after auth approval SHOW PRW results, pt to be called no results yet no results Pt was schedule 04/22/21 @ [facility] at 2:30- results will be in her chart Sunday- please send to [facility] to review thank you [facility] Ambulatory Clinical Summaryo n 04-11-2021 Ambulatory Clinical Summary {[id number]}CD:[id number] [facility] Patient Educationon 04-11-20 Patient Education Urology Urinary Incontinence Urinary incontinence refers to a condition in which a person is unable to control where and when to pass urine. A person with this condition will urinate when he or she does not mean to (involuntarily). What are the causes? This condition may be caused by: ? Medicines. ? Infections. ? Constipation. ? Overactive bladder muscles. ? Weak bladder muscles. ? Weak pelvic floor muscles. These muscles provide support for the bladder, intestine, and, in women, the uterus. ? Enlarged prostate in men. The prostate is a gland near the bladder. When it gets too big, it can pinch the urethra. With the urethra blocked, the bladder can weaken and lose the ability to empty properly. ? Surgery. ? Emotional factors, such as anxiety, stress, or post-traumatic stress disorder (PTSD). ? Pelvic organ prolapse. This happens in women when organs shift out of place and into the vagina. This shift can prevent the bladder and urethra from working properly. What increases the risk? The following factors may make you more likely to develop this condition: ? Older age. ? Obesity and physical inactivity. ? and childbirth. ? Menopause. ? Diseases that affect the nerves or spinal cord (neurological diseases). ? Long-term (chronic) coughing. This can increase pressure on the bladder and pelvic floor muscles. What are the signs or symptoms? Symptoms may vary depending on the type of urinary incontinence you have. They include: ? A sudden urge to urinate, but passing urine involuntarily before you can get to a bathroom (urge incontinence). ? Suddenly passing urine with any activity that forces urine to pass, such as coughing, laughing, exercise, or sneezing (stress incontinence). ? Needing to urinate often, but urinating only a small amount, or constantly dribbling urine (overflow incontinence). ? Urinating because you cannot get to the bathroom in time due to a physical disability, such as arthritis or injury, or communication and thinking problems, such as Alzheimer disease (functional incontinence). How is this diagnosed? This condition may be diagnosed based on: ? Your medical history. ? A physical exam. ? Tests, such as: ? Urine tests. ? X-rays of your kidney and bladder. ? Ultrasound. ? CT scan. ? Cystoscopy. In this procedure, a health care provider inserts a tube with a light and camera (cystoscope) through the urethra and into the bladder in order to check for problems. ? Urodynamic testing. These tests assess how well the bladder, urethra, and sphincter can store and release urine. There are different types of urodynamic tests, and they vary depending on what the test is measuring. To help diagnose your condition, your health care provider may recommend that you keep a log of when you urinate and how much you urinate. How is this treated? Treatment for this condition depends on the type of incontinence that you have and its cause. Treatment may include: ? Lifestyle changes, such as: ? Quitting smoking. ? Maintaining a healthy weight. ? Staying active. Try to get 150 minutes of moderate-intensity exercise every week. Ask your health care provider which activities are safe for you. ? Eating a healthy diet. ? Avoid high-fat foods, like fried foods. ? Avoid refined carbohydrates like white bread and white rice. ? Limit how much alcohol and caffeine you drink. ? Increase your fiber intake. Foods such as fresh fruits, vegetables, beans, and whole grains are healthy sources of fiber. ? Pelvic floor muscle exercises. ? Bladder training, such as lengthening the amount of time between bathroom breaks, or using the bathroom at regular intervals. ? Using techniques to suppress bladder urges. This can include distraction techniques or controlled breathing exercises. ? Medicines to relax the bladder muscles and prevent bladder spasms. ? Medicines to help slow or prevent the growth of a man's prostate. ? Botox injections. These can help relax the bladder muscles. ? Using pulses of electricity to help change bladder reflexes (electrical nerve stimulation). ? For women, using a medical equipment repairer to prevent urine leaks. This is a small, tampon-like, disposable device that is inserted into the urethra. ? Injecting collagen or carbon beads (bulking agents) into the urinary sphincter. These can help thicken tissue and close the bladder opening. ? Surgery. Follow these instructions at home: Lifestyle ? Limit alcohol and caffeine. These can fill your bladder quickly and irritate it. ? Keep yourself clean to help prevent odors and skin damage. Ask your doctor about special skin creams and cleansers that can protect the skin from urine. ? Consider wearing pads or adult diapers. Make sure to change them regularly, and always change them right after experiencing incontinence. General instructions ? Take [id number]-[id number] and prescription medicines only as (more content not included)... Normal [facility] Urology Office/Clinic Noteon 04-11-2021 Urology Office/Clinic Note Chief Complaint 7 month f/u HPI Staff 35 year old female here today for f/u. Previous dx of urinary frequency, mixed incontinence, urgency, incomplete bladder emptying, UTI and renal mass (partial nephrectomy 11/04/20). PVR today is 21ml. Dysuria: no Incomplete bladder emptying: pt feels she is not emptying Hematuria: no Frequency: yes pt states she is doing timed voids every 2 hours Urgency: yes Nocturia: pt states she does not get up Stream: varies and sprays all over Leaking: yes Post void dripping: no Wearing pads/ Depends: yes changes 2-3x Urge incontinence: yes sometimes Stress incontinence: yes Incontinence without Sensory Awareness: no Abdominal pain: no Flank pain: left sided sharp every now and then and states that it shoots down to her hip Sexual complaints: no History of Present Illness Reviewed partial nephrectomy op and path report. There have been no associated fever, chills, flank pain or blood in the urine. Pt. denies any pain/burning with urination at this time. Review of Systems PHQ Score Initial Depression Screen Score: 0 ROS - Provider Constitutional: denies weight loss, denies hot flashes. Eyes: denies eye problems. Gastrointestinal: denies nausea, denies vomiting. Cardiovascular: denies chest pain or angina. Integumentary: no dryness Musculoskeletal: denies musculoskeletal symptoms. ENMT: denies otolaryngeal symptoms. Respiratory: no shortness of breath. Heme/Lymph: denies easy bleeding tendency, denies easy bruising tendency. Psychiatric: no confusion, no anxiety. Genitourinary: denies vaginal discharge, moderate incontinence, denies dysuria, denies hematuria, denies urinary frequency, denies amenorrhea, denies menorrhagia, denies abnormal bleeding, denies pelvic pain, denies genital sores, and denies decreased libido. Physical Exam Vitals & Measurements HR: 83(Peripheral) RR: 16 BP: 137/100 HT: 150 cm HT: 150.0 cm WT: 82.1 kg WT: 82.1 kg BMI: 36.49 General Appearance: alert , no acute distress, well nourished, well developed female. Genitourinary: bladder nonpalpable, no flank pain. Assessment/Plan 1. Renal cell carcinoma (C64.9: Malignant neoplasm of unspecified kidney, except renal pelvis) S/p Lt. robotic partial nephrectomy done 11/04/2020 (2.7cm). Clear cell subtype, ISUP grade 2. clear margins. Pt. is healing well. Will have pt. obtain a CT and chest x-ray soon and will call pt. with results. All questions/concerns were discussed. Pt. to call the office if sheencounters any issues prior. Pt. acknowledges understanding. 2. Mixed incontinence (N39.46: Mixed incontinence) Ongoing. Moderate - severe. Stress incontinence is worse. Pads changed 2-3x/day. I discussed with the pt. possibly considering a sling procedure but she understands that we'll need to do a cystoscopy first. Pt. will consider this. 3. UTI (urinary tract infection) (N39.0: Urinary tract infection, site not specified) Previously treated with Macrobid. UA today shows no signs of infection. 4. Feeling of incomplete bladder emptying (R39.14: Feeling of incomplete bladder emptying) PVR today - 21ml vs. 111ml previously. 5. Other urethral stricture, female (N35.82: Other urethral stricture, female) S/p Cysto/UD 06/01/2020. I have reviewed the previous health record information and history for this pt. from Dr. Galicia. Follow-up With When Contact Information RYAN MULLER, Vidal Jaeger, URL [address] [place] [address] [place] [address]- [phone] Additional Instructions: 6mos. f/u Patient Education Urinary Incontinence I, Archana Oliveros , personally scribed for Dr. Galicia on 04/11/2021 09:39:09. . Documentation recorded by the scribe, Archana Oliveros, accurately reflects the services(s) I performed and decisions made by me. Authenticated by Dr. Galicia on 04/11/2021 09:41:54. Problem List/Past Medical History Ongoing Abdominal pain Feeling of incomplete bladder emptying Incomplete bladder emptying Incontinence without sensory awareness Mixed incontinence Other urethral stricture, female Renal cell carcinoma Renal mass Rt flank pain Stress incontinence Urgency of urination Urinary frequency UTI (urinary tract infection) Historical No qualifying data Procedure/Surgical History Partial nephrectomy (11/04/2020), Urodynamics (06/01/2020), Bilateral tubal ligation, section, section. Medications albuterol 90 mcg/inh inhalation powder, Inhalation, q6hr Macrobid 100 mg Cap, 100 mg= 1 cap(s), Oral, BID omeprazole, Oral, Daily Stiolto Respimat 2.5 mcg-2.5 mcg inhalation aerosol, Inhalation, BID Allergies No Known Allergies Social History Alcohol - Denies Alcohol Use, 02/06/2020 Tobacco 10 or more cigarettes (1/2 pack or more)/day in last 30 days Tobacco Use:. Never Smokeless Tobacco Use:. Cigarettes, 02/06/2020 Cigarettes, 1 per day. 10 year(s). Total pack years: 10., 10/05/ (more content not included)... Normal [facility] Comment on above: Result Comment: Elec tronically Signed By: RYAN MULLER, Vidal Jaeger\.br\Date and Time Signed: 04/11/21 09:41 EDT\.br\Electronically Co-Signed By: Archana Oliveros MA\.br\Date and Time Co-Signed: 04/11/21 09:39 EDT Vital Signs Date Time Vital Sign Value Performing Clinician Anaid carbajal 10-14-2021 08:19-0400 Diastolic blood pressure 91 mm[Hg] Vidal GALICIA [facility] 10-14-2021 08:19-0400 Mean blood pressure 107 mm[Hg] Vidal GALICIA [facility] 10-14-2021 08:19-0400 Systolic blood pressure 139 mm[Hg] [facility]ICIA [facility] [place] 10-14-2021 08:04-0400 Blood Pressure Location Vidal GALICIA [facility] [place] 10-14-2021 08:04-0400 Diastolic blood pressure 93 mm[Hg] Vidal GALICIA [facility] 10-14-2021 08:04-0400 Heart rate 97 /min [facility]IC[facility] [place] 10-14-2021 08:04-0400 Respiratory rate 16 /min Vidal GALICIA [facility] [place] 10-14-2021 08:04-0400 Systolic blood pressure 144 mm[Hg] Vidal GALICIA [facility] [place] Encounters Encounter Date Encounter Type Care Provider Facility Start: 02-27-2024 ambulatory UNKNOWN PROVIDER Facili ty:[facility] Start: 08-23-2023 ambulatory Colton Holly MA [facility] Start: 08-23-2023 Patient encounter procedure Colton Holly MA [facility] Comment on above: Community Outreach ( [facility]erral/Mammogram) Start: 01-29-2023 End: 01-29-2023 ambulatory Wally Joseph Facility:[facility] Start: 01-29-2023 End: 01-29-2023 ambulatory PHYSICIAN NO [facility] Work Phone: Start: 01-29-2023 End: 01-29-2023 Discharged Recurring PHYSICIAN NO [facility] [place] Work Phone: Start: 11-07-2022 End: 11-08-2022 ambulatory NONE LISTED REQUEST Facility: Start: 11-04-2022 ambulatory NONE LISTED REQUEST Facility:[facility] Start: 10-25-2022 End: 10-25-2022 ambulatory NONE LISTED REQUEST Facility: Start: 01-16-2022 End: 01-16-2022 Patient encounter procedure Vidal GALICIA [facility] Start: 10-14-2021 End: 10-14-2021 Patient encounter procedure Vidal GALICIA [facility] Procedures Date Procedure Procedure Detail Performing Clinician Start: 11-04-2020 Partial nephrectomy Alice jenni GALICIA Start: 06-01-2020 Urodynamic studies Roger GALICIA Bilateral tubal ligation Alice GALICIA section Vidal POON Plan of Treatment Date Care Activity Detail Author Start: 06-11-2023 Depression Assessment Depression Ass essment [facility] Start: 2023 Screening for malign ant neoplasm of breast Mammogram Screening [facility] Start: 02-09-2023 Covid-19 Vaccine ( season) Covid-19 Vaccine () [facility] Start: 02-09-2023 Influenza vaccination Influenza Vacc ine (#1) [facility] Start: 2013 Screening for malign ant neoplasm of cervix HPV Testing [facility] Start: 2004 Screening for malign ant neoplasm of cervix Pap Testing [facility] Start: 2002 Hepatitis B Vaccine (1 of 3 - 19+ 3-dose series) Hepatitis B Vaccine (1 of 3 - 19+ 3-dose series) [facility] Start: 2002 Urine microalbumin profile DTaP,Tdap,Td Vaccine (1 - Tdap) [facility] Start: 2001 Hepatitis C screening Hepatitis C Sc amaury [facility] Start: 2001 HIV screening HIV Screening [facility] jimena [facility] Start: 1989 Pneumococcal vaccination Pneum ococcal Vaccine (1 of 2 - PCV) [facility] Immunizations Immunization Date Immunization Notes Care Provider Zelalem lubnabrodie 03-27-2019 influenza virus vaccine, unspecified formulation Colton Holly MA [facility] NEGATED: Highlighted row has not occurred!05-28-2020 influenza virus vaccine, unspecified formulation Vidal GALICIA [facility] Payers Date Payer Category Payer Self-pay 2020 Private Health Insurance [facility] [employer] [id number] 2020-Present [address] [address] [place] [address] PPO [id number] 1983 Unknown [id number] 1983 Unknown [id number] 1983 Unknown [id number] 1983 Unknown [id number] 1959 Unknown [id number] 1959 Unknown [id number] 1959 Unknown Medicaid [facility] [id number] Unknown [id number] Unknown Richard ROBLES/BS [id number] Social History Date Type Detail Facility Start: 02-06-2020 Tobacco smoking status Heavy t obacco smoker (finding) [facility] Tobacco smoking status Never [facility] [employer] Start: 10-15-2020 End: 07-06-2021 Sex Assigned At Female [facility] [employer] Start: 1985 Sex Assigned At Female F [facility] Start: 10-15-[address] [facility] Start: 10-15-2020 Tobacco use and exposure Smokeless tobacco non-user [facility] Start: 10-15-2020 End: 07-06-2021 History of Social function [facility] Start: 10-09-2020 Gender identity Identifies as female gender (finding) [facility] Start: 10-09-2020 Sexual orientation Heterosexual (fin ding) [facility] Progress note 08-28-2023 Note Date & Type Note Facility 08-28-2023 Note HNO ID: [id number] Author: COLTON HOLLY MA Service: ? Author Type: Plate Drying Machine Tender Type: Progress Notes Filed: 08/28/2023 10:07 Note Text: [facility] Provider Action/FYI 2nd attempt; LVM asking for a return call. Colton Holly MA [facility] History of Present illness Narrative 08-28-2023 Colton Holly MA - 08/28/2023 10:07 AM EDTReColton almeida MA - 08/23/2023 1:27 PM EDT Note Date & Type Note Facility 08-28-2023 History of Presen t illness Narrative [facility] Provider Action/FYI 2nd attempt; LVM asking for a return call. Colton Holly MA [facility] Provider Action/I Mammogram referral received. Attempted to make contact with the patient for scheduling, no answer. LVM asking for a return call. I will follow up. Colton Holly MA documented in this encounter [facility] Progress note 08-23-2023 Note Date & Type Note Facility 08-23-2023 Note HNO ID: [id number] Author: COLTON HOLLY MA Service: ? Author Type: Plate Drying Machine Tender Type: Progress Notes Filed: 08/28/2023 10:07 Note Text: [facility] Provider Action/FYI Mammogram referral received. Attempted to make contact with the patient for scheduling, no answer. LVM asking for a return call. I will follow up. Colton Holly MA [facility] Clinical Note 08-23-2023 Note Date & Type Note Facility 08-23-2023 Note [facility] LEAH FREEMAN ([id number]) 1985 F Date Time Provider Department 08/23/23 COLTON HOLLY During your visit today, we recorded the following information about you: Colton Holly MA 08/28/2023 10:07 AM Signed [facility] Provider Action/FYI Mammogram referral received. Attempted to make contact with the patient for scheduling, no answer. LVM asking for a return call. I will follow up. CARY Del Real Tracie, MA 08/28/2023 10:07 AM Signed [facility] Provider Action/FYI 2nd attempt; LVM asking for a return call. Colton Holly MA Allergies As of Date: 08/23/2023 (No Known Allergies) Date Reviewed: 07/06/2021 Reviewed by: Cee Vee APRN.PEST MANAGEMENT SUPERVISOR - Fully Assessed Reason for Visit: Community Outreach [Other] Cmt: [facility] Referral/Mammogram Prescriptions as of 08/28/2023 - acetaminophen (TYLENOL EXTRA STRENGTH) 500 mg tablet Take 2 tablets by mouth every 8 hours as needed for Pain. - tiotropium-olodaterol (STIOLTO RESPIMAT) 2.5-2.5 mcg/actuation puff(s), Inhalation, BID, Refills(s) 0 - omeprazole (PRILOSEC) 20 mg capsule - Norethindrone, Contraceptive, (INCASSIA) 0.35 mg tablet - ALBUTEROL INHALATION - albuterol sulfate 90 mcg/actuation breath activated powder inhaler puff(s), Inhalation, q6hr, Refill(s) 0 Problem List As Of Date 08/23/2023 Noted Resolved Obesity, Class III, BMI >= 40 [E66.01] 11/04/2020 Nicotine use disorder, F17.2 [F17.200] 11/25/2020 Encounter Status:Closed by COLTON HOLLY on 08/28/23 [facility] Discharge instructions 10-14-2021 Note Date & Type Note Facility 10-14-2021 Hospital Discharg e instructions Follow Up Care 10/14/2021 08:47:28 With:RYAN MULLER, Vidal Jaeger, URL Address: [facility] [address] [place] [address] [phone] When: Unknown [facility] Discharge instructions 10-14-2021 Note Date & Type Note Facility 10-14-2021 Hospital Discharg e instructions Patient Education 10/14/2021 07:43:00 Urinary Incontinence Urinary Incontinence Urinary incontinence refers to a condition in which a person is unable to control where and when to pass urine. A person with this condition will urinate when he or she does not mean to (involuntarily). What are the causes? This condition may be caused by: Medicines. Infections. Constipation. Overactive bladder muscles. Weak bladder muscles. Weak pelvic floor muscles. These muscles provide support for the bladder, intestine, and, in women, the uterus. Enlarged prostate in men. The prostate is a gland near the bladder. When it gets too big, it can pinch the urethra. With the urethra blocked, the bladder can weaken and lose the ability to empty properly. Surgery. Emotional factors, such as anxiety, stress, or post-traumatic stress disorder (PTSD). Pelvic organ prolapse. This happens in women when organs shift out of place and into the vagina. This shift can prevent the bladder and urethra from working properly. What increases the risk? The following factors may make you more likely to develop this condition: Older age. Obesity and physical inactivity. and childbirth. Menopause. Diseases that affect the nerves or spinal cord (neurological diseases). Long-term (chronic) coughing. This can increase pressure on the bladder and pelvic floor muscles. What are the signs or symptoms? Symptoms may vary depending on the type of urinary incontinence you have. They include: A sudden urge to urinate, but passing urine involuntarily before you can get to a bathroom (urge incontinence). Suddenly passing urine with any activity that forces urine to pass, such as coughing, laughing, exercise, or sneezing (stress incontinence). Needing to urinate often, but urinating only a small amount, or constantly dribbling urine (overflow incontinence). Urinating because you cannot get to the bathroom in time due to a physical disability, such as arthritis or injury, or communication and thinking problems, such as Alzheimer disease (functional incontinence). How is this diagnosed? This condition may be diagnosed based on: Your medical history. A physical exam. Tests, such as: ?Urine tests. ?X-rays of your kidney and bladder. ?Ultrasound. ?CT scan. ?Cystoscopy. In this procedure, a health care provider inserts a tube with a light and camera (cystoscope) through the urethra and into the bladder in order to check for problems. ?Urodynamic testing. These tests assess how well the bladder, urethra, and sphincter can store and release urine. There are different types of urodynamic tests, and they vary depending on what the test is measuring. To help diagnose your condition, your health care provider may recommend that you keep a log of when you urinate and how much you urinate. How is this treated? Treatment for this condition depends on the type of incontinence that you have and its cause. Treatment may include: Lifestyle changes, such as: ?Quitting smoking. ?Maintaining a healthy weight. ?Staying active. Try to get 150 minutes of moderate-intensity exercise every week. Ask your health care provider which activities are safe for you. ?Eating a healthy diet. ?Avoid high-fat foods, like fried foods. ?Avoid refined carbohydrates like white bread and white rice. ?Limit how much alcohol and caffeine you drink. ?Increase your fiber intake. Foods such as fresh fruits, vegetables, beans, and whole grains are healthy sources of fiber. Pelvic floor muscle exercises. Bladder training, such as lengthening the amount of time between bathroom breaks, or using the bathroom at regular intervals. Using techniques to suppress bladder urges. This can include distraction techniques or controlled breathing exercises. Medicines to relax the bladder muscles and prevent bladder spasms. Medicines to help slow or prevent the growth of a man's prostate. Botox injections. These can help relax the bladder muscles. Using pulses of electricity to help change bladder reflexes (electrical nerve stimulation). For women, using a medical equipment repairer to prevent urine leaks. This is a small, tampon-like, disposable device that is inserted into the urethra. Injecting collagen or carbon beads (bulking agents) into the urinary sphincter. These can help thicken tissue and close the bladder opening. Surgery. Follow these instructions at home: Lifestyle Limit alcohol and caffeine. These can fill your bladder quickly and irritate it. Keep yourself clean to help prevent odors and skin damage. Ask your doctor about special skin creams and cleansers that can protect the skin from urine. Consider wearing pads or adult diapers. Make sure to change them regularly, and always change them right after experiencing incontinence. General instructions Take soen-ksp-wjtljrj and prescription medicines only as told by your health care provider. Use the bathroom about every 3 4 hours, even if you do not feel the need to urinate. Try to empty your bladder completely every time. After urinating, wait a minute. Then try to urinate again. Make sure you are in a relaxed position while urinating. If your incontinence is caused by nerve problems, keep a log of the medicines you take and the times you go to the bathroom. Keep all follow-up visits as told by your health care provider. This is important. Contact a health care provider if: You have pain that gets worse. Your incontinence gets worse. Get help right away if: You have a fever or chills. You are unable to urinate. You have redness in your groin area or down your legs. Summary Urinary incontinence refers to a condition in which a person is unable to control where and when to pass urine. This condition may be caused by medicines, infection, weak bladder muscles, weak pelvic floor muscles, enlargement of the prostate (in men), or surgery. The following factors increase your risk for developing this condition: older age, obesity, and childbirth, menopause, neurological diseases, and chronic coughing. There are several types of urinary incontinence. They include urge incontinence, stress incontinence, overflow incontinence, and functional incontinence. This condition is usually treated first with lifestyle and behavioral changes, such as quitting smoking, eating a healthier diet, and doing regular pelvic floor exercises. Other treatment options include medicines, bulking agents, medical devices, electrical nerve stimulation, or surgery. This information is not intended to replace advice given to you by your health care provider. Make sure you discuss any questions you have with your health care provider. Document Released: 07/05/2005 Document Revised: 06/07/2018 Document Reviewed: 09/06/2017 [employer] Patient Education 2020 [employer]. 10/14/2021 07:42:54 Overactive Bladder, Adult Overactive Bladder, Adult Overactive bladder refers to a condition in which a person has a sudden need to pass urine. The person may leak urine if he or she cannot get to the bathroom fast enough (urinary incontinence). A person with this condition may also wake up several times in the night to go to the bathroom. Overactive bladder is associated with poor nerve signals between your bladder and your brain. Your bladder may get the signal to empty before it is full. You may also have very sensitive muscles that make your bladder squeeze too soon. These symptoms might interfere with daily work or social activities. What are the causes? This condition may be associated with or caused by: Urinary tract infection. Infection of nearby tissues, such as the prostate. Prostate enlargement. Surgery on the uterus or urethra. Bladder stones, inflammation, or tumors. Drinking too much caffeine or alcohol. Certain medicines, especially medicines that get rid of extra fluid in the body (diuretics). Muscle or nerve weakness, especially from: ?A spinal cord injury. ?Stroke. ?Multiple sclerosis. ?Parkinson's disease. Diabetes. Constipation. What increases the risk? You may be at greater risk for overactive bladder if you: Are an older adult. Smoke. Are going through menopause. Have prostate problems. Have a neurological disease, such as stroke, dementia, Parkinson's disease, or multiple sclerosis (MS). Eat or drink things that irritate the bladder. These include alcohol, spicy food, and caffeine. Are overweight or obese. What are the signs or symptoms? Symptoms of this condition include: Sudden, strong urge to urinate. Leaking urine. Urinating 8 or more times a day. Waking up to urinate 2 or more times a night. How is this diagnosed? Your health care provider may suspect overactive bladder based on your symptoms. He or she will diagnose this condition by: A physical exam and medical history. Blood or urine tests. You might need bladder or urine tests to help determine what is causing your overactive bladder. You might also need to see a health care provider who specializes in urinary tract problems (urologist). How is this treated? Treatment for overactive bladder depends on the cause of your condition and whether it is mild or severe. You can also make lifestyle changes at home. Options include: Bladder training. This may include: ?Learning to control the urge to urinate by following a schedule that directs you to urinate at regular intervals (timed voiding). ?Doing Kegel exercises to strengthen your pelvic floor muscles, which support your bladder. Toning these muscles can help you control urination, even if your bladder muscles are overactive. Special devices. This may include: ?Biofeedback, which uses sensors to help you become aware of your body's signals. ?Electrical stimulation, which uses electrodes placed inside the body (implanted) or outside the body. These electrodes send gentle pulses of electricity to strengthen the nerves or muscles that control the bladder. ?Women may use a plastic device that fits into the vagina and supports the bladder (pessary). Medicines. ?Antibiotics to treat bladder infection. ?Antispasmodics to stop the bladder from releasing urine at the wrong time. ?Tricyclic antidepressants to relax bladder muscles. ?Injections of botulinum toxin type A directly into the bladder tissue to relax bladder muscles. Lifestyle changes. This may include: ?Weight loss. Talk to your health care provider about weight loss methods that would work best for you. ?Diet changes. This may include reducing how much alcohol and caffeine you consume, or drinking fluids at different times of the day. ?Not smoking. Do not use any products that contain nicotine or tobacco, such as cigarettes and e-cigarettes. If you need help quitting, ask your health care provider. Surgery. ?A device may be implanted to help manage the nerve signals that control urination. ?An electrode may be implanted to stimulate electrical signals in the bladder. ?A procedure may be done to change the shape of the bladder. This is done only in very severe cases. Follow these instructions at home: Lifestyle Make any diet or lifestyle changes that are recommended by your health care provider. These may include: ?Drinking less fluid or drinking fluids at different times of the day. ?Cutting down on caffeine or alcohol. ?Doing Kegel exercises. ?Losing weight if needed. ?Eating a healthy and balanced diet to prevent constipation. This may include: ?Eating foods that are high in fiber, such as fresh fruits and vegetables, whole grains, and beans. ?Limiting foods that are high in fat and processed sugars, such as fried and sweet foods. General instructions Take [id number] and prescription medicines only as told by your health care provider. If you were prescribed an antibiotic medicine, take it as told by your health care provider. Do not stop taking the antibiotic even if you start to feel better. Use any implants or pessary as told by your health care provider. If needed, wear pads to absorb urine leakage. Keep a journal or log to track how much and when you drink and when you feel the need to urinate. This will help your health care provider monitor your condition. Keep all follow-up visits as told by your health care provider. This is important. Contact a health care provider if: You have a fever. Your symptoms do not get better with treatment. Your pain and discomfort get worse. You have more frequent urges to urinate. Get help right away if: You are not able to control your bladder. Summary Overactive bladder refers to a condition in which a person has a sudden need to pass urine. Several conditions may lead to an overactive bladder. Treatment for overactive bladder depends on the cause and severity of your condition. Follow your health care provider's instructions about lifestyle changes, doing Kegel exercises, keeping a journal, and taking medicines. This information is not intended to replace advice given to you by your health care provider. Make sure you discuss any questions you have with your health care provider. Document Released: 03/24/2010 Document Revised: 09/18/2019 Document Reviewed: 06/13/2018 [employer] Patient Education 2020 [employer]. Follow Up Care 04/11/2021 09:39:53 With:RYAN MULLER, Vidal Jaeger, URL Address: [facility] [address], [place] [address]- When:01/14/2022 [facility] Evaluation + Plan note Note Date & Type Note Facility Evaluation + Plan note Future Appointments Appointment Date:01/16/2022 03:00:00 PM Scheduled Provider:Vidal GALICIA MD Location:[facility] Appointment Type:URO Office Visit [facility] Evaluation note Note Date & Type Note Facility Evaluation note No assessment information availa [facility] Work Phone: Hospital course Narrative Note Date & Type Note Facility Hospital course Narrative No data available for this section [facility] Progress note Note Date & Type Note Facility Progress note No data available for this section [facility] Summary Purpose Family History No Family History Records FoundNo Family History Records FoundNo Family History Records FoundNo Family History Records FoundNo Family History Records Found Advance Directives No Advanced Directives Records Found Advance Directive Response Recorded Date/ Time Advance Directives No May 16, 2018 7:28am Chief Complaint and Reason for Visit Chief Complaint R arm extensor tear Additional Source Comments Care Team (unrecognized sect ion and content) Team Status: Active Member Role Status Dates PHYSICIAN NO FAMILY Primary Care Provider Active Team Status: Inactive Member Role Status Dates PHYSICIAN NO FAMILY Primary Care Provider Active Wally Joseph NP-C Attending Provider Active 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 Start Date End Date Yash Simpson MD PCP - General Family Medicine 05/28/20 INFORMATION SOURCE (unrecogn ized section and content) DATE CREATED AUTHOR 01/17/2022 [facility] DATE CREATED AUTHOR AUTHOR'S ORGANIZ ATION 11/17/2022 [facility] DATE CREATED AUTHOR AUTHOR'S ORGANIZ ATION 01/30/2023 [facility] DATE CREATED AUTHOR AUTHOR'S ORGANIZ ATION 08/29/2023 [facility] DATE CREATED AUTHOR AUTHOR'S CARLEY ARREDONDO 03/03/2024 [facility] Goals (unrecognized section and content) Goals may be documented in a n alternate section Source Comments (unrecognize d section and content) In the event this informatio n is protected by the [place] Confidentiality of Alcohol and Drug Abuse Patient Records regulations: The Federal rules restrict any use of the information to criminally investigate or prosecute any alcohol or drug abuse patient.[facility] Reason for Visit (unrecogniz ed section and content) Reason Onset Date Comments Community Outreach 08/23/2023 [facility] err[facility]/Mammogram FOR RECORDS PERTAINING TO PATIENTS WHO ARE OR HAVE BEEN ENROLLED IN A CHEMICAL DEPENDENCY/SUBSTANCEABUSE PROGRAM, SOME INFORMATION MAY BE OMITTED. This clinical summary was aggregated from multiple sources. Caution should be exercised in using it in the provision of clinical care. This summary normalizes information from multiple sources, and as a consequence, information in this document may materially change the coding, format and clinical context of patient data. In addition, data may be omitted in some cases. CLINICAL DECISIONS SHOULD BE BASED ON THE PRIMARY CLINICAL RECORDS. [employer] [facility]. provides no warranty or guarantee of the accuracy or completeness of information in this document.
[2024-03-13] MEDS: 0.9 % SODIUM CHLORIDE 1,000 ML 1000 ML IV (06:16)
[2024-03-13] MEDS: KETOROLAC TROMETHAMINE 30 MG/ML VIAL IVP (06:17)
[2024-03-13] MEDS: ONDANSETRON PF 4 MG/2 ML VIAL IV (06:17)
[2024-03-13] MEDS: DICYCLOMINE HCL 20 MG/2 ML VIAL IM (06:18)
[2024-03-13 06:28] LABS: Basophils Absolute Auto 0.1 10^3/uL (0.0-0.1); Basophils Percent Auto 0.6 % (0.2-2.0); Eosinophils Absolute Auto 0.6 10^3/uL (0.0-0.7); Eosinophils Percent Auto 4.1 % (0.9-7.0); Hematocrit 41.3 % (36.0-48.0); Hemoglobin 13.6 g/dL (12.0-16.0); Immature Granulocytes Abs Auto 0.06 10^3/uL (0.00-0.03); Immature Granulocytes Pct Auto 0.4 % (0.0-0.5); Lymphocytes Absolute Auto 2.5 10^3/uL (1.2-3.8); Lymphocytes Percent Auto 18.4 % (20.5-60.0); Mean Corpuscular HGB Conc 32.9 g/dL (29.9-35.2); Mean Corpuscular Hemoglobin 27.3 pg (26.7-34.0); Mean Corpuscular Volume 82.9 fL (81.0-99.0); Mean Platelet Volume 11.9 fL (9.5-13.5); Monocytes Absolute Auto 0.9 10^3/uL (0.3-0.8); Monocytes Percent Auto 6.9 % (1.7-12.0); Neutrophils Absolute Auto 9.3 10^3/uL (1.4-6.5); Neutrophils Percent Auto 69.6 % (43.0-75.0); Platelet Count 268 10^3/uL (150-450); Red Blood Count 4.98 10^6/uL (4.20-5.40); Red Cell Distribution Width 15.3 % (11.0-15.0); White Blood Count 13.4 10^3/uL (4.0-11.0)
[2024-03-13 06:45] LABS: Alanine Aminotransferase 30 U/L (14-59); Albumin Globulin Ratio 0.8; Albumin Level 3.2 g/dL (3.4-5.0); Alkaline Phosphatase 69 U/L (46-116); Anion Gap 16.2; Aspartate Amino Transferase 21 U/L (15-37); BUN Creatinine Ratio 18.1; Bilirubin Total 0.2 mg/dL (0.2-1.0); Calcium 9.3 mg/dL (8.5-10.1); Carbon Dioxide 20.5 mmol/L (21.0-32.0); Chloride 103 mmol/L (98-107); Estimated GFR (African America >60 (>=60 mL/min/1.73m^2); Estimated GFR (Non-African Ame >60 (>=60 mL/min/1.73m^2); Globulin 4.2 g/dL; Glucose 138 mg/dL (74-106); Potassium 3.7 mmol/L (3.5-5.1); Sodium 136 mmol/L (136-145); Total Protein 7.4 g/dL (6.4-8.2)
[2024-03-13 06:48] LABS: Lactate/Lactic Acid 1.1 mmol/L (0.4-2.0)
--- NOTE | 2024-03-13 07:28 | ED_ITS ---
HPI HPI - General Adult General Chief complaint: Nausea/Vomiting/Diarrhea Stated complaint: blood in stool, Time Seen by Provider: 03/13/24 05:21 Source: patient Mode of arrival: walk-in Limitations: no limitations History of Present Illness HPI narrative: 38-year-old female presented for diarrhea and was initially seen by Dr. Freitas and signed out to me after discussing the case with her thoroughly. Please see her full history and physical exam. Related Data Home Medications ?Medication ?Instructions ?Recorded ?Confirmed albuterol sulfate 2.5 mg/3 mL mg 03/13/24 (0.083 %) solution for nebulization albuterol sulfate 90 mcg/actuation inhalation 03/13/24 aerosol inhaler budesonide 160 mcg-glycopyr 9 inh inhalation 03/13/24 mcg-formot 4.8 mcg/actuation HFA inhaler (Breztri Aerosphere) omeprazole 40 mg capsule,delayed mg 03/13/24 release tiotropium 2.5 mcg-olodaterol 2.5 inhalation 03/13/24 mcg/actuation mist for inhalation (Stiolto Respimat) Previous Rx's ?Medication ?Instructions ?Recorded ciprofloxacin HCl 500 mg tablet 500 mg PO Q12H #20 tabs 03/13/24 (Cipro) metronidazole 500 mg tablet 500 mg PO TID #30 tabs 03/13/24 Allergies Allergy/AdvReac Type Severity Reaction Status Date / Time No Known Drug Allergies Allergy Verified 03/13/24 05:19 Opioid HPI Opioid Management Most Recent Opioid Data: No Data to Display PFSH PFSH Social History Little interest or pleasure in doing things: not at all Feeling down, depressed, or hopeless: not at all Exam Constitutional Vital Signs, click to edit/add: Last Vital Signs Temp 98.7 F 03/13/24 05:17 Pulse 90 03/13/24 05:17 Resp 20 03/13/24 05:17 BP 145/97 H 03/13/24 05:17 Pulse Ox 98 03/13/24 05:17 O2 Del Method Room Air 03/13/24 05:17 Course Vital Signs Vital signs: Vital Signs Temperature 98.7 F 03/13/24 05:17 Pulse Rate 90 03/13/24 05:17 Respiratory Rate 20 03/13/24 05:17 Blood Pressure 145/97 H 03/13/24 05:17 Pulse Oximetry 98 10/03/24 05:17 Oxygen Delivery Method Room Air 03/13/24 05:17 Temperature 98.7 F 03/13/24 05:17 Pulse Rate 90 03/13/24 05:17 Respiratory Rate 20 03/13/24 05:17 Blood Pressure 145/97 H 03/13/24 05:17 Pulse Oximetry 98 03/13/24 05:17 Oxygen Delivery Method Room Air 03/13/24 05:17 Medical Decision Making MDM Narrative Medical decision making narrative: CT scan shows colitis. Blood work nonspecific. C. difficile test is pending. She will be prescribed Cipro and Flagyl. Treatment diagnosis and follow-up were discussed with the patient. Differential Diagnosis Differential Diagnosis: Colitis, C. difficile, viral gastroenteritis Lab Data Lab results reviewed: Yes I reviewed the patient's lab results Labs: Lab Results 03/13/24 Range/Units 05:45 WBC 13.4 H (4.0-11.0) 10^3/uL RBC 4.98 (4.20-5.40) 10^6/uL Hgb 13.6 (12.0-16.0) g/dL Hct 41.3 (36.0-48.0) % MCV 82.9 (81.0-99.0) fL MCH 27.3 (26.7-34.0) pg MCHC 32.9 (29.9-35.2) g/dL RDW 15.3 H (11.0-15.0) % Plt Count 268 (150-450) 10^3/uL MPV 11.9 (9.5-13.5) fL Neut % (Auto) 69.6 (43.0-75.0) % Lymph % (Auto) 18.4 L (20.5-60.0) % [place] % (Auto) 6.9 (1.7-12.0) % Eos % (Auto) 4.1 (0.9-7.0) % Baso % (Auto) 0.6 (0.2-2.0) % Neut # (Auto) 9.3 H (1.4-6.5) 10^3/uL Lymph # (Auto) 2.5 (1.2-3.8) 10^3/uL [place] # (Auto) 0.9 H (0.3-0.8) 10^3/uL Eos # (Auto) 0.6 (0.0-0.7) 10^3/uL Baso # (Auto) 0.1 (0.0-0.1) 10^3/uL Abs Immat Gran (auto) 0.06 H (0.00-0.03) 10^3/uL Imm/Tot Granulo (auto) 0.4 (0.0-0.5) % Sodium 136 (136-145) mmol/L Potassium 3.7 (3.5-5.1) mmol/L Chloride 103 (98-107) mmol/L Carbon Dioxide 20.5 L (21.0-32.0) mmol/L Anion Gap 16.2 BUN 17.0 (7.0-18.0) mg/dL Creatinine 0.94 (0.55-1.02) mg/dL Est GFR ( Amer) >60 (>=60 mL/min/1.73m^2) Est GFR (Non-Af Amer) >60 (>=60 mL/min/1.73m^2) BUN/Creatinine Ratio 18.1 Glucose 138 H (74-106) mg/dL Lactate 1.1 (0.4-2.0) mmol/L Calcium 9.3 (8.5-10.1) mg/dL Total Bilirubin 0.2 (0.2-1.0) mg/dL AST 21 (15-37) U/L ALT 30 (14-59) U/L Alkaline Phosphatase 69 (46-116) U/L Total Protein 7.4 (6.4-8.2) g/dL Albumin 3.2 L (3.4-5.0) g/dL Globulin 4.2 g/dL Albumin/Globulin Ratio 0.[address] scan - abdomen: Radiologist's impression: ITS Impressions Abdomen/Pelvis CT 03/13/24 05:32 IMPRESSION: 1. Mild colitis. No bowel obstruction. Electronically authenticated by: TENNILLE LIGHT Date: 03/13/2024 06:26 Discharge Plan Discharge Chief Complaint: Nausea/Vomiting/Diarrhea Clinical Impression: Diarrhea, Acute colitis Patient Disposition: Home, Self-Care Time of Disposition Decision: 07:27 Condition: Good Mode of Transportation: Private Vehicle Prescriptions / Home Meds: New metronidazole 500 mg tablet 500 mg PO TID Qty: 30 0RF ciprofloxacin HCl [Cipro] 500 mg tablet 500 mg PO Q12H Qty: 20 0RF No Action albuterol sulfate 2.5 mg /3 mL (0.083 %) solution for nebulization omeprazole 40 mg capsule,delayed release(DR/EC) albuterol sulfate 90 mcg/actuation HFA aerosol inhaler INHALATION Stiolto Respimat 2.5-2.5 mcg/actuation mist INHALATION Breztri Aerosphere 160-9-4.8 mcg/actuation HFA aerosol inhaler INHALATION Print Language: Pashto Instructions: Acute Diarrhea (ED), Colitis (ED) Referrals: BRITTNEY TREJO [Primary Care Provider] - 1 week
[2024-03-13 07:48] VITALS: BP 132/87; PULSE 87; O2SAT 99
[2024-03-13 12:15] LABS: C. Difficile PCR NEGATIVE (NEGATIVE)
--- NOTE | 2024-03-14 08:52 | PC.NURSE ---
Called pt to inform her of negative CDIFF. States she is feeling a little better.
== END 2024-03-13 07:48 | disposition home or self-care (01) ==
PROVIDERS: Emergency Medicine; Emergency Provider Emergency Medicine; PCP Nurse Practitioner Family
DX: K52.9 Noninfective gastroenteritis and colitis, unspecified (principal); E66.9 Obesity, unspecified; Z68.39 Body mass index [BMI] 39.0-39.9, adult
CPT/HCPCS: 36415; 74177; 80053; 83605; 85025; 87493; 96361; 96372; 96374; 96375; 99284; J0500; J1885; J2405; Q9967

== ENCOUNTER 2024-04-17 17:03 | Emergency (ER) | payer OTHER, SELFPAY ==
[2024-04-17 17:12] VITALS: BP 135/92; PULSE 75; TEMP 36.8; O2SAT 100; BMI 39.4
--- NOTE | 2024-04-17 17:22 | ED.EYEPROB1 ---
HPI - Eye Problem General Chief complaint: Eye Problems Stated complaint: EYE PAIN Time Seen by Provider: 04/17/24 17:08 Source: patient Mode of arrival: walk-in Limitations: no limitations History of Present Illness HPI Narrative: 38 year old female presents to the ED for right eye erythema, drainage, itching, crusting. Onset was 3-4 days ago. Denies fever, chills, injury, vision changes. Denies sinus congestion/drainage, dizziness, MÁRQUEZ. Related Data Home Medications ?Medication ?Instructions ?Recorded ?Confirmed albuterol sulfate 2.5 mg/3 mL 2.5 mg inhalation Q8H PRN 03/13/24 04/17/24 (0.083 %) solution for nebulization shortness of breath or wheezing albuterol sulfate 90 mcg/actuation 1 inh inhalation Q8H PRN shortness 03/13/24 04/17/24 aerosol inhaler of breath or wheezing budesonide 160 mcg-glycopyr 9 2 inh inhalation DAILY 03/13/24 04/17/24 mcg-formot 4.8 mcg/actuation HFA inhaler (Breztri Aerosphere) omeprazole 40 mg capsule,delayed 40 mg PO DAILY 03/13/24 04/17/24 release tiotropium 2.5 mcg-olodaterol 2.5 2 inh inhalation Q24H 03/13/24 04/17/24 mcg/actuation mist for inhalation (Stiolto Respimat) Previous Rx's ?Medication ?Instructions ?Recorded ofloxacin 0.3 % eye drops (Ocuflox) 1 drp ophthalmic (eye) QID 7 days 04/17/24 #5 mL Allergies Allergy/AdvReac Type Severity Reaction Status Date / Time No Known Drug Allergies Allergy Verified 03/13/24 05:19 Review of Systems ROS Constitutional Denies: fever or chills Eyes Reports: eye discharge; Denies: change in vision, blurry vision, blind spots, light sensitivity or floaters Ears, nose, mouth, and throat Denies: throat pain Cardiovascular Denies: chest pain Respiratory Denies: shortness of breath Neurological Denies: headache or dizziness PFSH PFSH Social History Little interest or pleasure in doing things: not at all Feeling down, depressed, or hopeless: not at all Exam Constitutional Vital Signs, click to edit/add: Last Vital Signs Temp 98.3 F 04/17/24 17:12 Pulse 75 04/17/24 17:12 Resp 18 04/17/24 17:12 BP 135/92 H 04/17/24 17:12 Pulse Ox 100 04/17/24 17:12 O2 Del Method Room Air 04/17/24 17:12 Common normals: no apparent distress and oriented x3 Eye Common normals: PERRL, EOMs intact bilaterally and no scleral icterus Eyelid: eyelids normal Conjunctiva: conjunctiva abnormal right conjunctival injection and discharge Neck & C-Spine Common normals: supple Chest Chest: symmetrical chest wall rise Respiratory Effort & inspection: able to speak in complete sentences and symmetric chest movement Cardio Common normals: regular rate Neuro Common normals: oriented x3 Sensorium/orientation: awake and alert Speech: speech normal Course Vital Signs Vital signs: Vital Signs Temperature 98.3 F 04/17/24 17:12 Pulse Rate 75 04/17/24 17:12 Respiratory Rate 18 04/17/24 17:12 Blood Pressure 135/92 H 04/17/24 17:12 Pulse Oximetry 100 04/17/24 17:12 Oxygen Delivery Method Room Air 04/17/24 17:12 Temperature 98.3 F 04/17/24 17:12 Pulse Rate 75 04/17/24 17:12 Respiratory Rate 18 04/17/24 17:12 Blood Pressure 135/92 H 04/17/24 17:12 Pulse Oximetry 100 04/17/24 17:12 Oxygen Delivery Method Room Air 04/17/24 17:12 MDM - Eye Problem MDM Narrative Medical decision making narrative: Right eye was anesthetized with tetracaine, stained with fluorescein, and examined with the wood's lamp. There were no corneal abrasions noted. No FB was noted. Pt will be treated for conjunctivitis. A prescription was provided for Ocuflox. Follow up for a recheck, further evaluation and treatment. Return precautions were discussed. Differential Diagnosis Differential diagnosis: Likely corneal abrasion and conjunctivitis Medical Records Attestation: I reviewed the patient's medical records. Discharge Plan Discharge Chief Complaint: Eye Problems Clinical Impression: Conjunctivitis Patient Disposition: Home, Self-Care Time of Disposition Decision: 17:38 Condition: Good Mode of Transportation: Private Vehicle Prescriptions / Home Meds: New ofloxacin [Ocuflox] 0.3 % drops 1 drp ophthalmic (eye) QID 7 Days Qty: 5 0RF Rx Instructions: start on day 3 of therapy No Action albuterol sulfate 2.5 mg /3 mL (0.083 %) solution for nebulization 2.5 mg inhalation Q8H PRN (Reason: shortness of breath or wheezing) omeprazole 40 mg capsule,delayed release(DR/EC) 40 mg PO DAILY albuterol sulfate 90 mcg/actuation HFA aerosol inhaler 1 inh INHALATION Q8H PRN (Reason: shortness of breath or wheezing) Stiolto Respimat 2.5-2.5 mcg/actuation mist 2 inh INHALATION Q24H Breztri Aerosphere 160-9-4.8 mcg/actuation HFA aerosol inhaler 2 inh INHALATION DAILY Print Language: [place] Islander Instructions: Conjunctivitis (ED) Additional Instructions: Return to the ER for new or worsening symptoms. Referrals: BRITTNEY TREJO [Primary Care Provider] - 1 week Discharge Date/Time: 04/17/24 17:46
[2024-04-17] MEDS: FLUORESCEIN SODIUM 1 MG STRIP OP (17:31)
[2024-04-17] MEDS: TETRACAINE HCL 0.5% OP SOL 80 DROP/4 ML BOTTLE OP (17:31)
== END 2024-04-17 17:46 | disposition home or self-care (01) ==
PROVIDERS: Emergency Provider Emergency Medicine; PCP Nurse Practitioner Family
DX: H10.9 Unspecified conjunctivitis (principal)
CPT/HCPCS: 99283

== ENCOUNTER 2024-04-27 18:51 | Emergency (ER) | payer OTHER, SELFPAY ==
--- OUTSIDE RECORDS SUMMARY | 2024-04-27 18:56 | XMS_ITS | CCD ---
Author Organization [facility] Inform ion Partnership [facility] Care Team Providers Care Stock Mover Name Role Phone Yash Simpson. Primary Care [...] Provider Yash Simpson MD Primary Care Provider [phone] PROVIDER, UNKNOWN Admitting Unavailable PROVIDER, UNKNOWN Attending [...] day(s), # 90 tab(s), Refills(s) 3, Pharmacy: [facility] #[id number], 150, cm, 10/14/21 8:14:00 EDT, Height/Length Dosing, [...] Comment on above: Take 2 tablets by [facility] every 8 hours as needed for [...] NCI Lifetime Risk Score: 9.9% Normal [facility] MRI ELBOW RT WO CONon 2022 [...] JULIANE HWANG Date: 2022-11-07 10:53 Normal [facility] XR ELBOW RT MIN 3 VIEWSon XR [...] DRISS BREWSTER Date: 2022-10-25 04:24 Normal [facility] XR HUMERUS RT MIN 2 Von 05- [...] by: CLAUDIA GIMENEZ Date: 2022-10-25 04:23 Normal [facility] Patient Educationon 10-15-19 Patient Education Obstetrics and [...] ove (more content not included)... Normal [facility] Urology Office/Clinic Noteon 10-14-2021 Urology Office/Clinic [...] incontinence. Will send prescription to [facility] in [place]. Follow-up With When Contact Information Vidal GALICIA MD, URL In 3 months 01/14/2022 EDT [facility] [address] [place] [address]- Additional Instructions: Patient Education Urinary Incontinence Overactive [...] UTI (urinary tr (more content not included)... [facility] Comment on above: Result Comment: Elec tronically Signed By: Vidal GALICIA MD\.br\Date and Time Signed: 10/14/21 08:52 EDT\.br\Electronically Co-Signed By: Bebe Wright\.br\Date and Time Co-Signed: 10/14/21 08:48 EDT Lab Reportson 09-27-2021 Lab Reports [id number] .00CD:127 [facility] RAD - CT Reporton 09-27-2021 RAD - CT Report [id number] .00CD:127 [facility] Pre-Certification Formon Pre-Certification Form [id number] .00CD:127 [facility] Reminderson 09-09-2021 Reminders - From: Mitali Clark To: [facility] - Recalls [place]; Sent: 04/25/2021 13:46:17 EST Show up: 08/23/2021 14:46:00 EDT Subject: CT abd/pel with contrast Due Date/Time: 09/23/2021 14:46:00 EDT Reminder Message Pt. needs CT AP w/ contrast prior to 10/14/2021 appt. left vm for pt to call office order sent to [facility] Lab Reportson 04-25-2021 Lab Reports [id number] .00CD:127 [facility] RAD - CT Reporton 04-25-2021 RAD - CT Report [id number] .00CD:127 [facility] RAD - MISCon 04-25-2021 RAD - MISC [id number] .00CD:127 [facility] Pre-Certification Formon Pre-Certification Form [id number] .00CD:127 [facility] Reminderson 04-22-2021 Reminders - From: Ashanti Arellano [...] no results Pt was schedule 04/22/21 @ [facility] at 2:30- results will be in her chart Sunday- please send to PRW to review thank you [facility] Ambulatory Clinical Summaryo n 04-11-2021 Ambulatory Clinical Summary {[id number]}CD:[id number] Randa [facility] Patient Educationon 04-11-20 Patient Education Urology [...] stimulation). ? For women, using a medical records clerk to prevent urine leaks. This is a [...] after experiencing incontinence. General instructions ? Take nzkw-qwm-tglqprt and prescription medicines only as (more content not included)... Normal [facility] Urology Office/Clinic Noteon 04-11-2021 Urology Office/Clinic Note [...] Jaeger, URL [address] [place] [address] [place] [phone] Additional Instructions: 6mos. f/u Patient Education Urinary [...] 10., 10/05/ (more content not included)... Normal [facility] Comment on above: Result Comment: Elec tronically Signed By: RYAN MULLER, Vidal Jaeger\.br\Date and Time Signed: 04/11/21 09:41 EDT\.br\Electronically Co-Signed By: Archana Oliveros MA\.br\Date and Time Co-Signed: 04/11/21 09:39 EDT Vital Signs Date Time Vital Sign Value Performing Clinician Anaid carbajal 10-14-2021 08:19-0400 Diastolic blood pressure 91 mm[Hg] Vidal GALICIA [facility] 10-14-2021 08:19-0400 Mean blood pressure 107 mm[Hg] Vidal GALICIA [facility] 10-14-2021 08:19-0400 Systolic blood pressure 139 mm[Hg] Vidal GALICIA [facility] 10-14-2021 08:04-0400 Blood Pressure Location Vidal GALICIA [facility] [place] 10-14-2021 08:04-0400 Diastolic blood pressure 93 mm[Hg] Vidal GALICIA [facility] [place] 10-14-2021 08:04-0400 Heart rate 97 /min Vidal GALICIA [facility] [place] 10-14-2021 08:04-0400 Respiratory rate 16 /min Vidal GALICIA [facility] [place] 10-14-2021 08:04-0400 Systolic blood pressure 144 mm[Hg] Vidal GALICIA [facility] [place] Encounters Encounter Date Encounter Type Care Provider Facility Start: 02-27-2024 ambulatory UNKNOWN PROVIDER Facili ty:[facility] Start: 08-23-2023 ambulatory Colton Holly MA [facility] Start: 08-23-2023 Patient encounter procedure Colton Holly MA [facility] Comment on above: Community Outreach ( [facility] Referral/Mammogram) Start: 01-29-2023 End: 01-29-2023 ambulatory Wally Joseph Facility:[facility] Start: 01-29-2023 End: 01-29-2023 ambulatory PHYSICIAN NO [facility] Work Phone: Start: 01-29-2023 End: 01-29-2023 Discharged Recurring PHYSICIAN NO [facility] Work Phone: Start: 11-07-2022 End: 11-08-2022 ambulatory NONE LISTED REQUEST Facility: Start: 11-04-2022 ambulatory NONE LISTED REQUEST Facility:[facility] Start: 10-25-2022 End: 10-25-2022 ambulatory NONE LISTED REQUEST Facility: Start: 01-16-2022 End: 01-16-2022 Patient encounter procedure Vidal GALICIA [facility] Start: 10-14-2021 End: 10-14-2021 Patient encounter procedure Vidal GALICIA [facility] Procedures Date Procedure Procedure Detail Performing Clinician Start: 11-04-2020 Partial nephrectomy Alice jenni GALICIA Start: 06-01-2020 Urodynamic studies Roger GALICIA Bilateral tubal ligation Alice GALICIA section Vidal POON Plan of Treatment Date Care Activity Detail Author Start: 06-11-2023 Depression Assessment Depression Ass essment [facility] Start: 2023 Screening for malign ant neoplasm of breast Mammogram Screening [facility] Start: 02-09-2023 Covid-19 Vaccine ( season) Covid-19 Vaccine () [facility] Start: 02-09-2023 Influenza vaccination Influenza Vacc ine (#1) [facility] Start: 2013 Screening for malign ant neoplasm of cervix HPV Testing [facility] Start: 2004 Screening for malign ant neoplasm of cervix Pap Testing [facility] Start: 2002 Hepatitis B Vaccine (1 of 3 - 19+ 3-dose series) Hepatitis B Vaccine (1 of 3 - 19+ 3-dose series) [facility] Start: 2002 Urine microalbumin profile DTaP,Tdap,Td Vaccine (1 - Tdap) [facility] Start: 2001 Hepatitis C screening Hepatitis C Sc amaury [facility] Start: 2001 HIV screening HIV Screening [facility] Start: 1989 Pneumococcal vaccination Pneum ococcal Vaccine (1 of 2 - PCV) [facility] Immunizations Immunization Date Immunization Notes Care Provider Zelalem lubnabrodie 03-27-2019 influenza virus vaccine, unspecified formulation Colton Holly MA [facility] NEGATED: Highlighted row has not occurred!05-28-2020 influenza virus vaccine, unspecified formulation Vidal GALICIA [facility] Payers Date Payer Category Payer Self-pay 2020 Private Health Insurance [employer] [id number] 2020-Present [address] [address] [place] [address] PPO [id number] 1985 Unknown [id number] 1983 Unknown [id number] 1983 Unknown [id number] 1983 Unknown [id number] 1959 Unknown [id number] 1959 Unknown [id number] 1959 Unknown Medicaid [facility] [id number] Unknown [id number] Unknown Richard ROBLES/BS [id number] Social History Date Type Detail Facility Start: 02-06-2020 Tobacco smoking status Heavy t obacco smoker (finding) [facility] Tobacco smoking status Never [facility] Start: 10-15-2020 End: 07-06-2021 Sex Assigned At Female [facility] [employer] Start: 1985 Sex Assigned At Female F [facility] Start: 10-15-2020 [facility] Start: 10-15-2020 Tobacco use and exposure Smokeless tobacco non-user [facility] Start: 10-15-2020 End: 07-06-2021 History of Social function [facility] Start: 10-09-2020 Gender identity Identifies as female gender (finding) [facility] Start: 10-09-2020 Sexual orientation Heterosexual (fin ding) [facility] Progress note 08-28-2023 Note Date & Type Note Facility 08-28-2023 Note HNO ID: [id number] Author: COLTON HOLLY MA Service: ? Author Type: Field Enumerator Type: Progress Notes Filed: 08/28/2023 10:07 Note Text: [facility] Provider Action/FYI 2nd attempt; LVM asking for a return call. Colton Holly MA [facility] History of Present illness Narrative 08-28-2023 Colton [...] Colton Holly MA documented in this encounter [facility] Progress note 08-23-2023 Note Date & Type Note Facility 08-23-2023 Note HNO ID: [id number] Author: COLTON HOLLY MA Service: ? Author Type: Field Enumerator Type: Progress Notes Filed: 08/28/2023 10:07 Note Text: [facility] Provider Action/FYI Mammogram referral received. Attempted to make contact with the patient for scheduling, no answer. LVM asking for a return call. I will follow up. Colton Holly MA [facility] Clinical Note 08-23-2023 Note Date & Type Note Facility 08-23-2023 Note [facility] LEAH FREEMAN ([id number]) 1985 F Date Time Provider Department 08/23/23 COLTON HOLLY During your visit today, we recorded the following information about you: Colton Holly MA 08/28/2023 10:07 AM Signed [facility] Provider Action/FYI Mammogram referral received. Attempted to make contact with the patient for scheduling, no answer. LVM asking for a return call. I will follow up. CARY Del Real Tracie, MA 08/28/2023 10:07 AM Signed [facility] Provider Action/FYI 2nd attempt; LVM asking for a return call. Colton Holly MA Allergies As of Date: 08/23/2023 (No Known Allergies) Date Reviewed: 07/06/2021 Reviewed by: Cee Vee APRN.SECURITIES SALES ASSOCIATE - Fully Assessed Reason for Visit: Community [...] Encounter Status:Closed by COLTON HOLLY on 08/28/23 [facility] Discharge instructions 10-14-2021 Note Date & Type Note Facility 10-14-2021 Hospital Discharg e instructions Follow Up Care 10/14/2021 08:47:28 With:RYAN MULLER, Vidal Jaeger, URL Address: [facility] [address] [place] [address] [phone] When: Unknown [facility] Hospital Discharge instructions 10-14-2021 Note Date & [...] nerve stimulation). For women, using a medical records clerk to prevent urine leaks. This is a [...] right after experiencing incontinence. General instructions Take nwdw-rwj-pjfwtgm and prescription medicines only as told by [...] 07/05/2005 Document Revised: 06/07/2018 Document Reviewed: 09/06/2017 [employer] Patient Education 2020 GI-View. 10/14/2021 07:42:54 Overactive Bladder, Adult Overactive Bladder, [...] fried and sweet foods. General instructions Take pbrr-ncy-sukxneb and prescription medicines only as told by [...] 03/24/2010 Document Revised: 09/18/2019 Document Reviewed: 06/13/2018 [employer] Patient Education 2020 GI-View. Follow Up Care 04/11/2021 09:39:53 With:RYAN MULLER, Vidal Jaeger, URL Address: [facility] [address] [place] [address]- When:01/14/2022 [facility] Evaluation + Plan note Note Date & Type Note Facility Evaluation + Plan note Future Appointments Appointment Date:01/16/2022 03:00:00 PM Scheduled Provider:Vidal GALICIA MD Location:[facility] Appointment Type:URO Office Visit [facility] Evaluation note Note Date & Type Note Facility Evaluation note No assessment information availa [facility] Work Phone: Hospital course Narrative Note Date & Type Note Facility Hospital course Narrative No data available for this section [facility] Progress note Note Date & Type Note Facility Progress note No data available for this section [facility] Summary Purpose Family History No Family History [...] Active Wally Joseph NP-C Attending Provider Active Stock Mover Relationship Specialty Start Date End Date Yash Simpson MD PCP - General Family Medicine 05/28/20 INFORMATION SOURCE (unrecogn ized section and content) DATE CREATED AUTHOR 01/17/2022 [facility] DATE CREATED AUTHOR AUTHOR'S ORGANIZ ATION 11/17/2022 [facility] [place] [facility] DATE CREATED AUTHOR AUTHOR'S ORGANIZ ATION 01/30/2023 [facility] DATE CREATED AUTHOR AUTHOR'S ORGANIZ ATION 08/29/2023 [facility] DATE CREATED AUTHOR AUTHOR'S CARLEY ARREDONDO 03/03/2024 [facility] Goals (unrecognized section and content) Goals may be documented in a n alternate section Source Comments (unrecognize d section and content) In the event this informatio n is protected by the [facility] Confidentiality of Alcohol and Drug Abuse Patient Records regulations: The Federal rules restrict any use of the information to criminally investigate or prosecute any alcohol or drug abuse patient.[facility] Reason for Visit (unrecogniz ed section and [...] BE BASED ON THE PRIMARY CLINICAL RECORDS. [facility]. provides no warranty or guarantee of the accuracy or completeness of information in this document.
[2024-04-27 19:03] VITALS: BP 115/92; PULSE 71; TEMP 36.9; O2SAT 99; BMI 38.4
--- NOTE | 2024-04-27 20:10 | ED.EYEPROB1 ---
HPI - Eye Problem General Chief complaint: Eye Problems Stated complaint: Eye Discharge Time Seen by Provider: 04/27/24 20:07 Source: patient Mode of arrival: walk-in History of Present Illness HPI Narrative: seen 2 weeks ago for pink eye. Prescribed ofloxacin drops. States the eye did clear up. Yesterday right eye was red again. She has been using her eyedrops but feel they have made the eye worse. Vision is blurry. She also has sinus pain on the right side. No fever or headache. No nausea Related Data Home Medications ?Medication ?Instructions ?Recorded ?Confirmed albuterol sulfate 2.5 mg/3 mL 2.5 mg inhalation Q8H PRN 03/13/24 04/17/24 (0.083 %) solution for nebulization shortness of breath or wheezing albuterol sulfate 90 mcg/actuation 1 inh inhalation Q8H PRN shortness 03/13/24 04/17/24 aerosol inhaler of breath or wheezing budesonide 160 mcg-glycopyr 9 2 inh inhalation DAILY 03/13/24 04/17/24 mcg-formot 4.8 mcg/actuation HFA inhaler (BookingPalztri Aerosphere) omeprazole 40 mg capsule,delayed 40 mg PO DAILY 03/13/24 04/17/24 release tiotropium 2.5 mcg-olodaterol 2.5 2 inh inhalation Q24H 03/13/24 04/17/24 mcg/actuation mist for inhalation (Stiolto Respimat) Previous Rx's ?Medication ?Instructions ?Recorded ofloxacin 0.3 % eye drops (Ocuflox) 1 drp ophthalmic (eye) QID 7 days 04/17/24 #5 mL Allergies Allergy/AdvReac Type Severity Reaction Status Date / Time No Known Drug Allergies Allergy Verified 03/13/24 05:19 Review of Systems ROS Status of ROS 10 or more systems reviewed and unremarkable except as noted in history and below PFSH PFSH Social History Little interest or pleasure in doing things: not at all Feeling down, depressed, or hopeless: not at all Exam Constitutional Vital Signs, click to edit/add: Last Vital Signs Temp 98.5 F 04/27/24 19:03 Pulse 71 04/27/24 19:03 Resp 18 04/27/24 19:03 BP 115/92 H 04/27/24 19:03 Pulse Ox 99 04/27/24 19:03 O2 Del Method Room Air 04/27/24 19:03 Common normals: no apparent distress, oriented x3, no limitations, healthy appearing, alert and well nourished Eye Common normals: PERRL Other: right conjunctiva inflamed. No chemosis. No obvious FB . mild swelling of lower eyelid Respiratory Common normals: normal respiratory effort, no retractions, no use of accessory muscles and clear to auscultation bilaterally Cardio Common normals: regular rate, regular rhythm, S1 normal heart sound and S2 normal heart sound Extremity Common normals: normal to inspection and full ROM Neuro Common normals: oriented x3, CN's II-XII intact bilaterally, moves all extremities and no focal motor deficits Psych Appearance: grossly normal Course Vital Signs Vital signs: Vital Signs Temperature 98.5 F 04/27/24 19:03 Pulse Rate 71 04/27/24 19:03 Respiratory Rate 18 04/27/24 19:03 Blood Pressure 115/92 H 04/27/24 19:03 Pulse Oximetry 99 04/27/24 19:03 Oxygen Delivery Method Room Air 04/27/24 19:03 Temperature 98.5 F 04/27/24 19:03 Pulse Rate 71 04/27/24 19:03 Respiratory Rate 18 04/27/24 19:03 Blood Pressure 115/92 H 04/27/24 19:03 Pulse Oximetry 99 04/27/24 19:03 Oxygen Delivery Method Room Air 04/27/24 19:03 MDM - Eye Problem MDM Narrative Medical decision making narrative: patient presents with acutely inflamed right conjunctiva. Also complains of pain about her eyes and has frontal and maxillary sinus tenderness. CT facial bones with no acute finding. fluorescein instilled in the eye and noted to have mild abrasion at 5 oclock position. also mild swelling of the lower eyelid. No increased pain with palpation of the eye with the eye shut. atypical presentation with tenderness and pain about the eye. do not suspect occular cellulitis as the eye has only mild swelling of the lower eyelid and the eye was not tender when palpated and facial CT without findings to support this diagnosis . May have early periorbital cellulitis to explain her symptoms as lower eyelid is swollen. will plan to treat aggressively with antibiotic ointment and oral antibiotics as well. Patient informed of the importance of close follow up Lab Data Labs: Lab Results 04/27/24 Range/Units 20:24 WBC 10.2 (4.0-11.0) 10^3/uL RBC 4.86 (4.20-5.40) 10^6/uL Hgb 13.3 (12.0-16.0) g/dL Hct 41.4 (36.0-48.0) % MCV 85.2 (81.0-99.0) fL MCH 27.4 (26.7-34.0) pg MCHC 32.1 (29.9-35.2) g/dL RDW 15.9 H (11.0-15.0) % Plt Count 229 (150-450) 10^3/uL MPV 11.6 (9.5-13.5) fL Neut % (Auto) 62.6 (43.0-75.0) % Lymph % (Auto) 25.5 (20.5-60.0) % [place] % (Auto) 6.9 (1.7-12.0) % Eos % (Auto) 4.0 (0.9-7.0) % Baso % (Auto) 0.8 (0.2-2.0) % Neut # (Auto) 6.4 (1.4-6.5) 10^3/uL Lymph # (Auto) 2.6 (1.2-3.8) 10^3/uL [place] # (Auto) 0.7 (0.3-0.8) 10^3/uL Eos # (Auto) 0.4 (0.0-0.7) 10^3/uL Baso # (Auto) 0.1 (0.0-0.1) 10^3/uL Abs Immat Gran (auto) 0.02 (0.00-0.03) 10^3/uL Imm/Tot Granulo (auto) 0.2 (0.0-0.5) % Sodium 140 (136-145) mmol/L Potassium 4.0 (3.5-5.1) mmol/L Chloride 107 (98-107) mmol/L Carbon Dioxide 25.2 (21.0-32.0) mmol/L Anion Gap 11.8 BUN 10.0 (7.0-18.0) mg/dL Creatinine 0.95 (0.55-1.02) mg/dL Est GFR ( Amer) >60 (>=60 mL/min/1.73m^2) Est GFR (Non-Af Amer) >60 (>=60 mL/min/1.73m^2) BUN/Creatinine Ratio 10.5 Glucose 87 (74-106) mg/dL Calcium 9.3 (8.5-10.1) mg/dL C-Reactive Protein 0.53 H (<=0.50) mg/dL Discharge Plan Discharge Chief Complaint: Eye Problems Clinical Impression: Corneal abrasion, Periorbital cellulitis Patient Disposition: Home, Self-Care Prescriptions / Home Meds: No Action albuterol sulfate 2.5 mg /3 mL (0.083 %) solution for nebulization 2.5 mg inhalation Q8H PRN (Reason: shortness of breath or wheezing) omeprazole 40 mg capsule,delayed release(DR/EC) 40 mg PO DAILY albuterol sulfate 90 mcg/actuation HFA aerosol inhaler 1 inh INHALATION Q8H PRN (Reason: shortness of breath or wheezing) Stiolto Respimat 2.5-2.5 mcg/actuation mist 2 inh INHALATION Q24H Breztri Aerosphere 160-9-4.8 mcg/actuation HFA aerosol inhaler 2 inh INHALATION DAILY ofloxacin [Ocuflox] 0.3 % drops 1 drp ophthalmic (eye) QID 7 Days Qty: 5 0RF Rx Instructions: start on day 3 of therapy Print Language: Persian Instructions: Corneal Abrasion (DC), Periorbital Cellulitis (ED) Additional Instructions: have your eye rechecked within the next 12 hours by your doctor or in the ER Referrals: BRITTNEY TREJO [Primary Care Provider] - 1 week Discharge Date/Time: 04/27/24 23:30
--- NOTE | 2024-04-27 20:14 | CT_ITS ---
[address] [address] Patient Name: AKBAR FREEMAN MRN: [id number] date: 1985 Sex: F Assigned Patient Location: ER Current Patient Location: [facility] Accession/Order Number: [id number] Exam Date: 04/27/2024 20:47 Report Date: 04/27/2024 22:05 At the request of: BHARAT PRICE Procedure: CT facial bones wo con EXAM: CT facial bones wo con HISTORY: Sinus pain. TECHNIQUE: Axial CT scans through the maxillofacial bony structures were obtained without contrast administration. Coronal and sagittal reconstruction images were obtained. Dose reduction techniques were achieved by using: automated exposure control and/or adjustment of mA and /or kV according to patient size and/or use of iterative reconstruction technique. FINDINGS: The paranasal sinuses are clear. The intraorbital contents appear normal. Visualized facility environmental technician spaces appear normal. Parapharyngeal spaces appear clear. The visualized neck shows no adenopathy. The visualized intracranial contents show no acute process. The craniovertebral junction appears normal. 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 Middle ear cavities are clear. Mastoids are clear. CT/CT facial bones wo con IMPRESSION: Clear paranasal sinuses and. The intraorbital contents appear normal. Electronically authenticated by: NEHEMIAS WHITTAKER Date: 04/27/2024 22:05
[2024-04-27] MEDS: FLUORESCEIN SODIUM 1 MG STRIP OP (20:30)
[2024-04-27 20:39] LABS: Basophils Absolute Auto 0.1 10^3/uL (0.0-0.1); Basophils Percent Auto 0.8 % (0.2-2.0); Eosinophils Absolute Auto 0.4 10^3/uL (0.0-0.7); Hematocrit 41.4 % (36.0-48.0); Hemoglobin 13.3 g/dL (12.0-16.0); Immature Granulocytes Abs Auto 0.02 10^3/uL (0.00-0.03); Immature Granulocytes Pct Auto 0.2 % (0.0-0.5); Lymphocytes Absolute Auto 2.6 10^3/uL (1.2-3.8); Lymphocytes Percent Auto 25.5 % (20.5-60.0); Mean Corpuscular HGB Conc 32.1 g/dL (29.9-35.2); Mean Corpuscular Hemoglobin 27.4 pg (26.7-34.0); Mean Corpuscular Volume 85.2 fL (81.0-99.0); Mean Platelet Volume 11.6 fL (9.5-13.5); Monocytes Absolute Auto 0.7 10^3/uL (0.3-0.8); Monocytes Percent Auto 6.9 % (1.7-12.0); Neutrophils Absolute Auto 6.4 10^3/uL (1.4-6.5); Neutrophils Percent Auto 62.6 % (43.0-75.0); Platelet Count 229 10^3/uL (150-450); Red Blood Count 4.86 10^6/uL (4.20-5.40); Red Cell Distribution Width 15.9 % (11.0-15.0); White Blood Count 10.2 10^3/uL (4.0-11.0)
[2024-04-27 20:50] LABS: Anion Gap 11.8; BUN Creatinine Ratio 10.5; C Reactive Protein 0.53 mg/dL (<=0.50); Calcium 9.3 mg/dL (8.5-10.1); Carbon Dioxide 25.2 mmol/L (21.0-32.0); Chloride 107 mmol/L (98-107); Estimated GFR (African America >60 (>=60 mL/min/1.73m^2); Estimated GFR (Non-African Ame >60 (>=60 mL/min/1.73m^2); Glucose 87 mg/dL (74-106); Sodium 140 mmol/L (136-145)
[2024-04-27] MEDS: TETRACAINE HCL 0.5% OP SOL 80 DROP/4 ML BOTTLE OP (20:59)
[2024-04-27] MEDS: CEFTRIAXONE 1,000 MG, LIDOCAINE HCL/PF 2.1 ML IM (23:13)
[2024-04-27] MEDS: ERYTHROMYCIN OP OINT 0.5% 1 GM TUBE OP (23:13)
== END 2024-04-27 23:30 | disposition home or self-care (01) ==
PROVIDERS: Emergency Provider Internal Medicine; PCP Nurse Practitioner Family
DX: S05.01XA Injury of conjunctiva and corneal abrasion without foreign body, right eye, initial encounter (principal); L03.213 Periorbital cellulitis; X58.XXXA Exposure to other specified factors, initial encounter
CPT/HCPCS: 36415; 70486; 80048; 85025; 86140; 96372; 99285; J0696

== ENCOUNTER 2024-05-26 07:32 | Outpatient (OUT) | payer OTHER, SELFPAY ==
--- OUTSIDE RECORDS SUMMARY | 2024-05-26 07:37 | XMS_ITS | CCD ---
Author Organization [facility] Inform ion Partnership [facility] Care Team Providers Care Face Boss Name Role Phone Yash Simpson. Primary Care Physician [phone] REQUEST, NONE LISTED Primary Care Unavaila ble [...] day(s), # 90 tab(s), Refills(s) 3, Pharmacy: [id number], 150, cm, 10/14/21 8:14:00 EDT, Height/Length Dosing, [...] Comment on above: Take 2 tablets by [facility] every 8 hours as needed for Pain. [...] NCI Lifetime Risk Score: 9.9% Normal [facility] MRI ELBOW RT WO CONon 2022 [...] JULIANE HWANG Date: 2022-11-07 10:53 Normal [facility] XR ELBOW RT MIN 3 VIEWSon [...] DRISS BREWSTER Date: 2022-10-25 04:24 Normal [facility] XR HUMERUS RT MIN 2 Von [...] by: CLAUDIA GIMENEZ Date: 2022-10-25 04:[address] [facility] Patient Educationon 10-15-19 Patient Education Obstetrics [...] ove (more content not included)... Normal [facility] Urology Office/Clinic Noteon 10-14-2021 Urology Office/Clinic Note [...] incontinence. Will send prescription to [facility] in [place]. Follow-up With When Contact Information Vidal GALICIA MD, URL In 3 months 01/14/2022 EDT [facility] [address] [place] [address]- Additional Instructions: Patient Education Urinary Incontinence Overactive [...] UTI (urinary tr (more content not included)... [facility] Comment on above: Result Comment: Elec tronically Signed By: Vidal GALICIA MD\.br\Date and Time Signed: 10/14/21 08:52 EDT\.br\Electronically Co-Signed By: Bebe Wright\.br\Date and Time Co-Signed: 10/14/21 08:48 EDT Lab Reportson 09-27-2021 Lab Reports [id number] .00CD:127 [facility] RAD - CT Reporton 09-27-2021 RAD - CT Report [id number] .00CD:127 [facility] Pre-Certification Formon Pre-Certification Form [id number] .00CD:127 [facility] Reminderson 09-09-2021 Reminders - From: Mitali Clark To: EU - Recalls [place]; Sent: 04/25/2021 13:46:17 EST Show up: 08/23/2021 14:46:00 EDT Subject: CT abd/pel with contrast Due Date/Time: 09/23/2021 14:46:00 EDT Reminder Message Pt. needs CT AP w/ contrast prior to 10/14/2021 appt. left vm for pt to call office order sent to [facility] Lab Reportson 04-25-2021 Lab Reports [id number] .00CD:127 [facility] RAD - CT Reporton 04-25-2021 RAD - CT Report [id number] .00CD:127 [facility] RAD - MISCon 04-25-2021 RAD - MISC [id number] .00CD:127 [facility] Pre-Certification Formon Pre-Certification Form [id number] .00CD:127 [facility] Reminderson 04-22-2021 Reminders - From: Ashanti [...] no results Pt was schedule 04/22/21 @ [facility] at 2:30- results will be in her chart Sunday- please send to PRW to review thank you [facility] Ambulatory Clinical Summaryo n 04-11-2021 Ambulatory Clinical Summary {[id number]}CD:[id number] Randa [facility] Patient Educationon 04-11-20 Patient Education Urology Urinary [...] stimulation). ? For women, using a medical clerical assistant to prevent urine leaks. This is a [...] after experiencing incontinence. General instructions ? Take evob-mzh-ybjhwuu and prescription medicines only as (more content not included)... Normal [facility] Urology Office/Clinic Noteon 04-11-2021 Urology Office/Clinic [...] Jaeger, URL [address] [place] [address] [place] [address]- [phone] Additional Instructions: 6mos. f/u Patient Education Urinary [...] 10., 10/05/ (more content not included)... Normal [facility] Comment on above: Result Comment: Elec tronically Signed By: RYAN MULLER, Vidal Jaeger\.br\Date and Time Signed: 04/11/21 09:41 EDT\.br\Electronically Co-Signed By: Archana Oliveros MA\.br\Date and Time Co-Signed: 04/11/21 09:39 EDT Vital Signs Date Time Vital Sign Value Performing Clinician Anaid carbajal 10-14-2021 08:19-0400 Diastolic blood pressure 91 mm[Hg] Vidal GALICIA [facility] 10-14-2021 08:19-0400 Mean blood pressure 107 mm[Hg] Vidal GALICIA [facility] 10-14-2021 08:19-0400 Systolic blood pressure 139 mm[Hg] Vidal GALICIA [facility] 10-14-2021 08:04-0400 Blood Pressure Location Vidal GALICIA [facility] [place] 10-14-2021 08:04-0400 Diastolic blood pressure 93 mm[Hg] Vidal GALICIA [facility] [place] 10-14-2021 08:04-0400 Heart rate 97 /min Vidal GALICIA [facility] 10-14-2021 08:04-0400 Respiratory rate 16 /min Vidal GALICIA [facility] [place] [facility] 10-14-2021 08:04-0400 Systolic blood pressure 144 mm[Hg] Vidal GALICIA [facility] [place] Encounters Encounter Date Encounter Type Care Provider Facility Start: 02-27-2024 ambulatory UNKNOWN PROVIDER Facili ty:[facility] Start: 08-23-2023 ambulatory Colton Holly MA [facility] Start: 08-23-2023 Patient encounter procedure Colton Holly MA [facility] Outreach Comment on above: Community Outreach ( [facility] Referral/Mammogram) Start: 01-29-2023 End: 01-29-2023 ambulatory Wally Joseph Facility:[facility] Start: 01-29-2023 End: 01-29-2023 ambulatory PHYSICIAN NO [facility] Work Phone: Start: 01-29-2023 End: 01-29-2023 Discharged Recurring PHYSICIAN NO [facility] [place] Work Phone: Start: 11-07-2022 End: 11-08-2022 ambulatory NONE LISTED REQUEST Facility: Start: 11-04-2022 ambulatory NONE LISTED REQUEST Facility:[facility] Start: 10-25-2022 End: 10-25-2022 ambulatory NONE LISTED REQUEST Facility: Start: 01-16-2022 End: 01-16-2022 Patient encounter procedure Vidal GALICIA [facility] Start: 10-14-2021 End: 10-14-2021 Patient encounter procedure Viadl GALICIA [facility] Procedures Date Procedure Procedure Detail Performing Clinician Start: 11-04-2020 Partial nephrectomy Alice jenni GALICIA Start: 06-01-2020 Urodynamic studies Roger GALICIA Bilateral tubal ligation Alice GALICIA section Vidal POON Plan of Treatment Date Care Activity Detail Author Start: 06-11-2023 Depression Assessment Depression Ass essment [facility] Start: 2023 Screening for malign ant neoplasm of breast Mammogram Screening [facility] Start: 02-09-2023 Covid-19 Vaccine ( season) Covid-19 Vaccine () [facility] Start: 02-09-2023 Influenza vaccination Influenza Vacc ine (#1) [facility] Start: 2013 Screening for malign ant neoplasm of cervix HPV Testing [facility] Start: 2004 Screening for malign ant neoplasm of cervix Pap Testing [facility] Start: 2002 Hepatitis B Vaccine (1 of 3 - 19+ 3-dose series) Hepatitis B Vaccine (1 of 3 - 19+ 3-dose series) [facility] Start: 2002 Urine microalbumin profile DTaP,Tdap,Td Vaccine (1 - Tdap) [facility] Start: 2001 Hepatitis C screening Hepatitis C Sc amaury [facility] Start: 2001 HIV screening HIV Screening [facility] Start: 1989 Pneumococcal vaccination Pneum ococcal Vaccine (1 of 2 - PCV) [facility] Immunizations Immunization Date Immunization Notes Care Provider Zelalem lubnabrodie 03-27-2019 influenza virus vaccine, unspecified formulation Colton Holly MA [facility] NEGATED: Highlighted row has not occurred!05-28-2020 influenza virus vaccine, unspecified formulation Vidal GALICIA [facility] Payers Date Payer Category Payer Self-pay 2020 Private Health Insurance [employer] [id number] 2020-Present [address] [address] [place] [address] PPO [id number] 1983 Unknown [id number] 1983 Unknown [id number] 1983 Unknown [id number] 1983 Unknown [id number] 1959 Unknown [id number] 1959 Unknown [id number] 1959 Unknown Medicaid [facility] [id number] Unknown [id number] Unknown Richard ROBLES/BS [id number] Social History Date Type Detail Facility Start: 02-06-2020 Tobacco smoking status Heavy t obacco smoker (finding) [facility] Tobacco smoking status Never [facility] Start: 10-15-2020 End: 07-06-2021 Sex Assigned At Female [facility] Start: 1985 Sex Assigned At Female F [facility] Start: 10-15-2020 [facility] Start: 10-15-2020 Tobacco use and exposure Smokeless tobacco non-user [facility] Start: 10-15-2020 End: 07-06-2021 History of Social function [facility] Start: 10-09-2020 Gender identity Identifies as female gender (finding) [facility] Start: 10-09-2020 Sexual orientation Heterosexual (fin ding) [facility] Progress note 08-28-2023 Note Date & Type Note Facility 08-28-2023 Note HNO ID: [id number] Author: COLTON HOLLY MA Service: ? Author Type: Spa Host Type: Progress Notes Filed: 08/28/2023 10:07 Note Text: [facility] Provider Action/FYI 2nd attempt; LVM asking for a return call. Colton Holly MA [facility] History of Present illness Narrative 08-28-2023 [...] Colton Holly MA documented in this encounter [facility] Progress note 08-23-2023 Note Date & Type Note Facility 08-23-2023 Note HNO ID: [id number] Author: COLTON HOLLY MA Service: ? Author Type: Spa Host Type: Progress Notes Filed: 08/28/2023 10:07 Note Text: [facility] Provider Action/FYI Mammogram referral received. Attempted to make contact with the patient for scheduling, no answer. LVM asking for a return call. I will follow up. Colton Holly MA [facility] Clinical Note 08-23-2023 Note Date & Type Note Facility 08-23-2023 Note [facility] LEAH FREEMAN ([id number]) 1985 F Date Time Provider Department 08/23/23 COLTON HOLLY During your visit today, we recorded the following information about you: Colton Holly MA 08/28/2023 10:07 AM Signed [facility] Provider Action/FYI Mammogram referral received. Attempted to make contact with the patient for scheduling, no answer. LVM asking for a return call. I will follow up. CARY Del Real Tracie, MA 08/28/2023 10:07 AM Signed [facility] Provider Action/FYI 2nd attempt; LVM asking for a return call. Colton Holly MA Allergies As of Date: 08/23/2023 (No Known Allergies) Date Reviewed: 07/06/2021 Reviewed by: Cee Vee APRN.MOTEL FRONT DESK ATTENDANT - Fully Assessed Reason for Visit: Community [...] Encounter Status:Closed by COLTON HOLLY on 08/28/23 [facility] Discharge instructions 10-14-2021 Note Date & Type Note Facility 10-14-2021 Hospital Discharg e instructions Follow Up Care 10/14/2021 08:47:28 With:RYAN MULLER, Vidal Jaeger, URL Address: [facility] [address] [place] [address] [phone] When: Unknown [facility] Hospital Discharge instructions 10-14-2021 Note Date & [...] nerve stimulation). For women, using a medical clerical assistant to prevent urine leaks. This is a [...] right after experiencing incontinence. General instructions Take tecd-rqv-pzspywf and prescription medicines only as told by [...] 07/05/2005 Document Revised: 06/07/2018 Document Reviewed: 09/06/2017 [employer] Patient Education 2020 [employer]. 10/14/2021 07:42:54 Overactive Bladder, Adult Overactive Bladder, [...] fried and sweet foods. General instructions Take sjfy-ggi-jzbbgmu and prescription medicines only as told by [...] 03/24/2010 Document Revised: 09/18/2019 Document Reviewed: 06/13/2018 [employer] Patient Education 2020 [employer]. Follow Up Care 04/11/2021 09:39:53 With:RYAN MULLER, Vidal Jaeger, URL Address: [facility] [address] [place] [address]- When:01/14/2022 [facility] Evaluation + Plan note Note Date & Type Note Facility Evaluation + Plan note Future Appointments Appointment Date:01/16/2022 03:00:00 PM Scheduled Provider:Vidal GALICIA MD Location:[facility] Appointment Type:URO Office Visit [facility] Evaluation note Note Date & Type Note Facility Evaluation note No assessment information availa [facility] Work Phone: Hospital course Narrative Note Date & Type Note Facility Hospital course Narrative No data available for this section [facility] Progress note Note Date & Type Note Facility Progress note No data available for this section [facility] Summary Purpose Family History No Family History [...] Active Wally Joseph NP-C Attending Provider Active Face Boss Relationship Specialty Start Date End Date Yash Simpson MD PCP - General Family Medicine 05/28/20 INFORMATION SOURCE (unrecogn ized section and content) DATE CREATED AUTHOR 01/17/2022 [facility] DATE CREATED AUTHOR AUTHOR'S ORGANIZ ATION 11/17/2022 [facility] DATE CREATED AUTHOR AUTHOR'S ORGANIZ ATION 01/30/2023 [facility] DATE CREATED AUTHOR AUTHOR'S ORGANIZ ATION 08/29/2023 [facility] DATE CREATED AUTHOR AUTHOR'S CARLEY ARREDONDO 03/03/2024 [facility] Goals (unrecognized section and content) Goals may be documented in a n alternate section Source Comments (unrecognize d section and content) In the event this informatio n is protected by the [facility] Confidentiality of Alcohol and Drug Abuse Patient Records regulations: The Federal rules restrict any use of the information to criminally investigate or prosecute any alcohol or drug abuse patient.[facility] Reason for Visit (unrecogniz ed section and [...] BE BASED ON THE PRIMARY CLINICAL RECORDS. [facility]. provides no warranty or guarantee of the accuracy or completeness of information in this document.
[2024-05-26 08:28] LABS: Estimated Average Glucose 128 mg/dL; Glycohemoglobin A1C 6.1 % (4.5-6.2)
== END 2024-05-26 07:33 | disposition home or self-care (01) ==
LOC: LAB 07:34
PROVIDERS: PCP Nurse Practitioner Family; Visit Provider Nurse Practitioner Family
DX: R73.03 Prediabetes (principal)

== ENCOUNTER 2024-08-19 08:00 | Emergency (ER) | payer OTHER, SELFPAY ==
[2024-08-19 08:07] VITALS: BP 154/92; PULSE 84; TEMP 36.7; O2SAT 100; BMI 38.4
--- NOTE | 2024-08-19 08:14 | PC.NURSE ---
Left shoulder pain, no known injury. No redness, brusing or swelling.
--- OUTSIDE RECORDS SUMMARY | 2024-08-19 08:16 | XMS_ITS | CCD ---
Author Organization [facility] Inform ion Partnership [facility] Care Team Providers Care Spring Tier Name Role Phone Yash Simpson. Primary Care [...] 3, Pharmacy: [id number], 150, cm, 10/14/21 8:14:00 EDT, Height/Length Dosing, [...] Comment on above: Take 2 tablets by [facility] every 8 hours as needed for Pain. [...] NCI Lifetime Risk Score: 9.9% Normal [facility] MRI ELBOW RT WO CONon 2022 [...] JULIANE HWANG Date: 2022-11-07 10:53 Normal [facility] XR ELBOW RT MIN 3 VIEWSon [...] DRISS BREWSTER Date: 2022-10-25 04:24 Normal [facility] XR HUMERUS RT MIN 2 Von [...] by: CLAUDIA GIMENEZ Date: 2022-10-25 04:23 Normal [facility] Patient Educationon 10-15-19 Patient Education Obstetrics [...] ove (more content not included)... Normal [facility] Urology Office/Clinic Noteon 10-14-2021 Urology Office/Clinic [...] incontinence. Will send prescription to [facility] in [place]. Follow-up With When Contact Information Vidal GALICIA MD, URL In 3 months 01/14/2022 EDT [facility] [address] [place] [address]- Additional Instructions: Patient Education Urinary Incontinence Overactive [...] UTI (urinary tr (more content not included)... [facility] Comment on above: Result Comment: Elec tronically Signed By: Vidal GALICIA MD\.br\Date and Time Signed: 10/14/21 08:52 EDT\.br\Electronically Co-Signed By: Bebe Wright\.br\Date and Time Co-Signed: 10/14/21 08:48 EDT Lab Reportson 09-27-2021 Lab Reports [id number] .00CD:127 [facility] RAD - CT Reporton 09-27-[address] RAD - CT Report [id number] .00CD:127 [facility] Pre-Certification Formon Pre-Certification Form [id number] .00CD:127 [facility] Reminderson 09-09-2021 Reminders - From: Mitali Clark To: EU - Recalls [place]; Sent: 04/25/2021 13:46:17 EST Show up: 08/23/2021 14:46:00 EDT Subject: CT abd/pel with contrast Due Date/Time: 09/23/2021 14:46:00 EDT Reminder Message Pt. needs CT AP w/ contrast prior to 10/14/2021 appt. left vm for pt to call office order sent to [facility] Lab Reportson 04-25-2021 Lab Reports [id number] .00CD:127 [facility] RAD - CT Reporton 04-25-2021 RAD - CT Report [id number] .00CD:127 [facility] RAD - MISCon 04-25-2021 RAD - MISC [id number] .00CD:127 [facility] Pre-Certification Formon Pre-Certification Form [id number] .00CD:127 [facility] Reminderson 04-22-2021 Reminders - From: Ashanti Arellano [...] no results Pt was schedule 04/22/21 @ [facility] at 2:30- results will be in her chart Sunday- please send to PRW to review thank you [facility] Ambulatory Clinical Summaryo n 04-11-2021 Ambulatory Clinical Summary {[id number]}CD:[id number] [facility] Patient Educationon 04-11-20 Patient Education Urology [...] nerve stimulation). ? For women, using a back office medical assistant to prevent urine leaks. This is [...] after experiencing incontinence. General instructions ? Take vyjp-pyf-jaafuxb and prescription medicines only as (more content not included)... Normal [facility] Urology Office/Clinic Noteon 04-11-2021 Urology Office/Clinic [...] Jaeger, URL [address] [place] [phone] Additional Instructions: 6mos. f/u Patient Education Urinary [...] 10., 10/05/ (more content not included)... Normal [facility] Comment on above: Result Comment: Elec tronically Signed By: RYAN MULLER, Vidal Jaeger\.br\Date and Time Signed: 04/11/21 09:41 EDT\.br\Electronically Co-Signed By: Archana Oliveros MA\.br\Date and Time Co-Signed: 04/11/21 09:39 EDT Vital Signs Date Time Vital Sign Value Performing Clinician Anaid carbajal 10-14-2021 08:19-0400 Diastolic blood pressure 91 mm[Hg] Vidal GALICIA [facility] 10-14-2021 08:19-0400 Mean blood pressure 107 mm[Hg] Vidal GALICIA [facility] 10-14-2021 08:19-0400 Systolic blood pressure 139 mm[Hg] Vidal GALICIA [facility] 10-14-2021 08:04-0400 Blood Pressure Location Vidal GALICIA [facility] 10-14-2021 08:04-0400 Diastolic blood pressure 93 mm[Hg] Vidal GALICIA [facility] [place] 10-14-2021 08:04-0400 Heart rate 97 /min Vidal GALICIA [facility] 10-14-2021 08:04-0400 Respiratory rate 16 /min Vidal GALICIA [facility] 10-14-2021 08:04-0400 Systolic blood pressure 144 mm[Hg] Vidal GALICIA [facility] [place] [facility] Encounters Encounter Date Encounter Type Care Provider Facility Start: 02-27-2024 ambulatory UNKNOWN PROVIDER Facili ty:[facility] Start: 08-23-2023 ambulatory Colton Holly MA [facility] Start: 08-23-2023 Patient encounter procedure Colton Holly MA [facility] Comment on above: Community Outreach ( [facility] Referral/Mammogram) Start: 01-29-2023 End: 01-29-2023 ambulatory Wally Joseph Facility:[facility] Start: 01-29-2023 End: 01-29-2023 ambulatory PHYSICIAN NO [facility] Work Phone: Start: 01-29-2023 End: 01-29-2023 Discharged Recurring PHYSICIAN NO [facility] [place] Work Phone: Start: 11-07-2022 End: 11-08-2022 ambulatory NONE LISTED REQUEST Facility: Start: 11-04-2022 ambulatory NONE LISTED REQUEST Facility:[facility] Start: 10-25-2022 End: 10-25-2022 ambulatory NONE LISTED REQUEST Facility: Start: 01-16-2022 End: 01-16-2022 Patient encounter procedure Vidal GALICIA [facility] Start: 10-14-2021 End: 10-14-2021 Patient encounter procedure Vidal GALICIA [facility] Procedures Date Procedure Procedure Detail Performing Clinician Start: 11-04-2020 Partial nephrectomy Alice jenni GALICIA Start: 06-01-2020 Urodynamic studies Roger GALICIA Bilateral tubal ligation Alice GALICIA section Vidal POON Plan of Treatment Date Care Activity Detail Author Start: 06-11-2023 Depression Assessment Depression Ass essment [facility] Start: 2023 Screening for malign ant neoplasm of breast Mammogram Screening [facility] Start: 02-09-2023 Covid-19 Vaccine ( season) Covid-19 Vaccine () [facility] Start: 02-09-2023 Influenza vaccination Influenza Vacc ine (#1) [facility] Start: 2013 Screening for malign ant neoplasm of cervix HPV Testing [facility] Start: 2004 Screening for malign ant neoplasm of cervix Pap Testing [facility] Start: 2002 Hepatitis B Vaccine (1 of 3 - 19+ 3-dose series) Hepatitis B Vaccine (1 of 3 - 19+ 3-dose series) [facility] Start: 2002 Urine microalbumin profile DTaP,Tdap,Td Vaccine (1 - Tdap) [facility] Start: 2001 Hepatitis C screening Hepatitis C Sc amaury [facility] Start: 2001 HIV screening HIV Screening [facility] jimena [facility] Start: 1989 Pneumococcal vaccination Pneum ococcal Vaccine (1 of 2 - PCV) [facility] Immunizations Immunization Date Immunization Notes Care Provider [place] lubnabrodie 03-27-2019 influenza virus vaccine, unspecified formulation Colton Holly MA [facility] NEGATED: Highlighted row has not occurred!05-28-2020 influenza virus vaccine, unspecified formulation Vidal GALICIA [facility] Payers Date Payer Category Payer Self-pay 2020 Private Health Insurance [employer] [id number] 2020-Present [address] [address] [place] [address] PPO [id number] 1983 Unknown [id number] 1983 Unknown [id number] 1983 Unknown [id number] 1983 Unknown [id number] 1959 Unknown [id number] 1959 Unknown [id number] 1959 Unknown Medicaid [facility] [id number] Unknown [id number] Unknown Richard ROBLES/BS [id number] Social History Date Type Detail Facility Start: 02-06-2020 Tobacco smoking status Heavy t obacco smoker (finding) [facility] Tobacco smoking status Never [facility] Start: 10-15-2020 End: 07-06-2021 Sex Assigned At Female [facility] Start: 1985 Sex Assigned At Female F [facility] Start: 10-15-2020 [facility] Start: 10-15-2020 Tobacco use and exposure Smokeless tobacco non-user [facility] Start: 10-15-2020 End: 07-06-2021 History of Social function [facility] Start: 10-09-2020 Gender identity Identifies as female gender (finding) [facility] Start: 10-09-2020 Sexual orientation Heterosexual (fin ding) [facility] Progress note 08-28-2023 Note Date & Type Note Facility 08-28-2023 Note HNO ID: [id number] Author: COLTON HOLLY MA Service: ? Author Type: Lithoduplicator Operator Type: Progress Notes Filed: 08/28/2023 10:07 Note Text: [facility] Provider Action/FYI 2nd attempt; LVM asking for a return call. Colton Holly MA [facility] History of Present illness Narrative [...] Colton Holly MA documented in this encounter [facility] Progress note 08-23-2023 Note Date & Type Note Facility 08-23-2023 Note HNO ID: [id number] Author: COLTON HOLLY MA Service: ? Author Type: Lithoduplicator Operator Type: Progress Notes Filed: 08/28/2023 10:07 Note Text: [facility] Provider Action/FYI Mammogram referral received. Attempted to make contact with the patient for scheduling, no answer. LVM asking for a return call. I will follow up. Colton Holly MA [facility] Clinical Note 08-23-2023 Note Date & Type Note Facility 08-23-2023 Note Patient Outreach ([facility]) LEAH FREEMAN ([id number]) 1985 F Date Time Provider Department 08/23/23 [...] Date Reviewed: 07/06/2021 Reviewed by: Cee Vee APRN.[employer]TERN[employer] - Fully Assessed Reason for Visit: Community [...] Encounter Status:Closed by COLTON HOLLY on 08/28/23 [facility] Discharge instructions 10-14-2021 Note Date & Type Note Facility 10-14-2021 Hospital Discharg e instructions Follow Up Care 10/14/2021 08:47:28 With:RYAN MULLER, Vidal Jaeger, URL Address: [facility] [address] [place] [phone] When: Unknown [facility] Hospital Discharge instructions 10-14-2021 Note Date & [...] (electrical nerve stimulation). For women, using a back office medical assistant to prevent urine leaks. This is [...] right after experiencing incontinence. General instructions Take iqyk-xvx-eucfcvq and prescription medicines only as told by [...] 07/05/2005 Document Revised: 06/07/2018 Document Reviewed: 09/06/2017 [employer] Patient Education 2020 TRAFI. 10/14/2021 07:42:54 Overactive Bladder, Adult Overactive Bladder, [...] fried and sweet foods. General instructions Take dbls-mff-edvzxrr and prescription medicines only as told by [...] 03/24/2010 Document Revised: 09/18/2019 Document Reviewed: 06/13/2018 [employer] Patient Education 2020 TRAFI. Follow Up Care 04/11/2021 09:39:53 With:RYAN MULLER, Vidal Jaeger, URL Address: [facility] [address] [place] [address]- When:01/14/2022 [facility] Evaluation + Plan note Note Date & Type Note Facility Evaluation + Plan note Future Appointments Appointment Date:01/16/2022 03:00:00 PM Scheduled Provider:Vidal GALICIA MD Location:[facility] Appointment Type:URO Office Visit [facility] Evaluation note Note Date & Type Note Facility Evaluation note No assessment information availa [facility] Work Phone: Hospital course Narrative Note Date & Type Note Facility Hospital course Narrative No data available for this section [facility] Progress note Note Date & Type Note Facility Progress note No data available for this section [facility] Summary Purpose Family History No Family History [...] Active Wally Joseph NP-C Attending Provider Active Spring Tier Relationship Specialty Start Date End Date Yash Simpson MD PCP - General Family Medicine 05/28/20 INFORMATION SOURCE (unrecogn ized section and content) DATE CREATED AUTHOR 01/17/2022 [facility] DATE CREATED AUTHOR AUTHOR'S ORGANIZ ATION 11/17/2022 [facility] DATE CREATED AUTHOR AUTHOR'S ORGANIZ ATION 01/30/2023 [facility] DATE CREATED AUTHOR AUTHOR'S ORGANIZ ATION 08/29/2023 [facility] DATE CREATED AUTHOR AUTHOR'S CARLEY ARREDONDO 03/03/2024 [facility] Goals (unrecognized section and content) Goals may be documented in a n alternate section Source Comments (unrecognize d section and content) In the event this informatio n is protected by the [facility] Confidentiality of Alcohol and Drug Abuse Patient Records regulations: The Federal rules restrict any use of the information to criminally investigate or prosecute any alcohol or drug abuse patient.[facility] Reason for Visit (unrecogniz ed section [...] BE BASED ON THE PRIMARY CLINICAL RECORDS. [facility]. provides no warranty or guarantee of the accuracy or completeness of information in this document.
--- NOTE | 2024-08-19 08:25 | ED.GENADUL1 ---
HPI HPI - General Adult General Chief complaint: Extremity Injury, Upper Stated complaint: UPPER EXTREMITY PAIN, BACK PAIN Time Seen by Provider: 08/19/24 08:14 Source: patient Mode of arrival: walk-in History of Present Illness HPI narrative: 39-year-old female presents for posterior left shoulder pain. She has had it for about 3 days and does not recall any specific injury. When she is at work she does a lot of pulling with that arm. There was no fall. She is right-handed and has no pain in the right shoulder. It hurts worse in certain positions. No weakness or numbness in the arm. Related Data Home Medications ?Medication ?Instructions ?Recorded ?Confirmed albuterol sulfate 2.5 mg/3 mL 2.5 mg inhalation Q8H PRN 03/13/24 08/19/24 (0.083 %) solution for nebulization shortness of breath or wheezing albuterol sulfate 90 mcg/actuation 1 inh inhalation Q8H PRN shortness 03/13/24 08/19/24 aerosol inhaler of breath or wheezing budesonide 160 mcg-glycopyr 9 2 inh inhalation DAILY 03/13/24 08/19/24 mcg-formot 4.8 mcg/actuation HFA inhaler (Breztri Aerosphere) omeprazole 40 mg capsule,delayed 40 mg PO DAILY 03/13/24 08/19/24 release tiotropium 2.5 mcg-olodaterol 2.5 2 inh inhalation Q24H 03/13/24 04/17/24 mcg/actuation mist for inhalation (Stiolto Respimat) Previous Rx's ?Medication ?Instructions ?Recorded ibuprofen 800 mg tablet 800 mg PO Q8H PRN pain #20 tabs 08/19/24 methocarbamol 750 mg tablet 750 mg PO Q8H #20 tabs 08/19/24 Allergies Allergy/AdvReac Type Severity Reaction Status Date / Time No Known Drug Allergies Allergy Verified 08/19/24 08:06 Opioid HPI Opioid Management Most Recent Opioid Data: Last Pain Scale 4 04/17/24 17:18 04/17/24 Review of Systems ROS Narrative A ten point review of systems is negative except as noted above. PFSH PFSH Social History Little interest or pleasure in doing things: not at all Feeling down, depressed, or hopeless: not at all Exam Narrative Exam Narrative: Nurses note and vital signs reviewed and patient is not hypoxic. General: The patient appears well and in no apparent distress. Patient is resting comfortably on cart. Skin: Warm, dry, no pallor noted. There is no rash noted. Head: Normocephalic, atraumatic Eye: Normal conjunctiva, no drainage Ears, Nose, Mouth, and Throat: oral mucosa is moist. Nares patent. Cardiovascular: Regular Rate and Rhythm Respiratory: Patient is in no distress, no accessory muscle use, lungs are clear to auscultation, no wheezing, rales or rhonchi Back: non-tender GI: Soft and nontender Musculoskeletal: The left shoulder is examined. There is no bruise rash or swelling. She has good range of motion of her shoulder but this causes discomfort in certain positions. Radial pulse 2+. Neurological: A&O, normal speech Psychiatric: Cooperative Constitutional Vital Signs, click to edit/add: Last Vital Signs Temp 98.1 F 08/19/24 08:07 Pulse 68 08/19/24 09:11 Resp 20 08/19/24 09:11 BP 134/85 08/19/24 09:11 Pulse Ox 99 08/19/24 09:11 O2 Del Method Room Air 08/19/24 09:11 Course Vital Signs Vital signs: Vital Signs Temperature 98.1 F 08/19/24 08:07 Pulse Rate 84 08/19/24 08:07 Respiratory Rate 20 08/19/24 08:07 Blood Pressure 154/92 H 08/19/24 08:07 Pulse Oximetry 100 08/19/24 08:07 Oxygen Delivery Method Room Air 08/19/24 08:07 Temperature 98.1 F 08/19/24 08:07 Pulse Rate 68 08/19/24 09:11 Respiratory Rate 20 08/19/24 09:11 Blood Pressure 134/85 08/19/24 09:11 Pulse Oximetry 99 08/19/24 09:11 Oxygen Delivery Method Room Air 08/19/24 09:11 Medical Decision Making MDM Narrative Medical decision making narrative: X-rays negative. She is feeling improved with IM Toradol and Norflex and the patient is able to be discharged home. Treatment diagnosis and follow-up were discussed with the patient. Differential Diagnosis Differential Diagnosis: Muscle strain, arthritis, fracture Imaging Data X-ray shoulder: My impression: No acute findings Discharge Plan Discharge Chief Complaint: Extremity Injury, Upper Clinical Impression: Left shoulder strain Patient Disposition: Home, Self-Care Time of Disposition Decision: 09:38 Condition: Good Mode of Transportation: Private Vehicle Prescriptions / Home Meds: New ibuprofen 800 mg tablet 800 mg PO Q8H PRN (Reason: pain) Qty: 20 0RF methocarbamol 750 mg tablet 750 mg PO Q8H Qty: 20 0RF No Action albuterol sulfate 2.5 mg /3 mL (0.083 %) solution for nebulization 2.5 mg inhalation Q8H PRN (Reason: shortness of breath or wheezing) omeprazole 40 mg capsule,delayed release(DR/EC) 40 mg PO DAILY albuterol sulfate 90 mcg/actuation HFA aerosol inhaler 1 inh INHALATION Q8H PRN (Reason: shortness of breath or wheezing) Stiolto Respimat 2.5-2.5 mcg/actuation mist 2 inh INHALATION Q24H Breztri Aerosphere 160-9-4.8 mcg/actuation HFA aerosol inhaler 2 inh INHALATION DAILY Print Language: [place] Instructions: Shoulder Pain (ED) Referrals: BRITTNEY TREJO [Primary Care Provider] - 1 week
[2024-08-19] MEDS: ORPHENADRINE 60 MG/ 2 ML VIAL IM (08:37)
[2024-08-19] MEDS: KETOROLAC TROMETHAMINE 60 MG/2 ML VIAL IM (08:37)
[2024-08-19 09:11] VITALS: BP 134/85; PULSE 68; O2SAT 99
== END 2024-08-19 09:49 | disposition home or self-care (01) ==
PROVIDERS: Emergency Provider Emergency Medicine; PCP Nurse Practitioner Family
DX: S46.912A Strain of unspecified muscle, fascia and tendon at shoulder and upper arm level, left arm, initial encounter (principal); X58.XXXA Exposure to other specified factors, initial encounter
CPT/HCPCS: 73030; 96372; 99284; J1885; J2360

== ENCOUNTER 2024-08-27 08:09 | Outpatient (OUT) | payer OTHER, SELFPAY ==
--- OUTSIDE RECORDS SUMMARY | 2024-08-27 08:18 | XMS_ITS | CCD ---
Author Organization [facility] Inform ion Partnership [facility] Care Team Providers Care Clothes Model Name Role Phone Yash Simpson. Primary Care [...] Provider Yash Simpson MD Primary Care Provider [phone] PROVIDER, UNKNOWN Admitting Unavailable PROVIDER, UNKNOWN Attending [...] day(s), # 90 tab(s), Refills(s) 3, Pharmacy: [facility] #[id number], 150, cm, 10/14/21 8:14:00 EDT, Height/Length Dosing, [...] Comment on above: Take 2 tablets by [facility] every 8 hours as needed for [...] NCI Lifetime Risk Score: 9.9% Normal [facility] MRI ELBOW RT WO CONon 2022 [...] JULIANE HWANG Date: 2022-11-07 10:53 Normal [facility] XR ELBOW RT MIN 3 VIEWSon [...] DRISS BREWSTER Date: 2022-10-25 04:24 Normal [facility] XR HUMERUS RT MIN 2 Von [...] by: CLAUDIA GIMENEZ Date: 2022-10-25 04:23 Normal [facility] Patient Educationon 10-15-19 Patient Education Obstetrics and [...] ove (more content not included)... Normal [facility] Urology Office/Clinic Noteon 10-14-2021 Urology Office/Clinic Note [...] incontinence. Will send prescription to [facility] in [place]. Follow-up With When Contact Information Vidal GALICIA MD, URL In 3 months 01/14/2022 EDT [facility] [address] [place] [address]- Additional Instructions: Patient Education Urinary Incontinence Overactive [...] UTI (urinary tr (more content not included)... [facility] Comment on above: Result Comment: Elec tronically Signed By: Vidal GALICIA MD\.br\Date and Time Signed: 10/14/21 08:52 EDT\.br\Electronically Co-Signed By: Bebe Wright\.br\Date and Time Co-Signed: 10/14/21 08:48 EDT Lab Reportson 09-27-2021 Lab Reports [id number] .00CD:127 [facility] RAD - CT Reporton 09-27-2021 RAD - CT Report [id number] .00CD:127 [facility] Pre-Certification Formon Pre-Certification Form [id number] .00CD:127 [facility] Reminderson 09-09-2021 Reminders - From: Mitali Clark To: EU - Recalls [place]; Sent: 04/25/2021 13:46:17 EST Show up: 08/23/2021 14:46:00 EDT Subject: CT abd/pel with contrast Due Date/Time: 09/23/2021 14:46:00 EDT Reminder Message Pt. needs CT AP w/ contrast prior to 10/14/2021 appt. left vm for pt to call office order sent to [facility] Lab Reportson 04-25-2021 Lab Reports [id number] .00CD:127 [facility] RAD - CT Reporton 04-25-2021 RAD - CT Report [id number] .00CD:127 [facility] RAD - MISCon 04-25-2021 RAD - MISC [id number] .00CD:127 [facility] Pre-Certification Formon Pre-Certification Form [id number] .00CD:127 [facility] Reminderson 04-22-2021 Reminders - From: Ashanti [...] no results Pt was schedule 04/22/21 @ [facility] at 2:30- results will be in her chart Sunday- please send to PRW to review thank you [facility] Ambulatory Clinical Summaryo n 04-11-2021 Ambulatory Clinical Summary {[id number]}CD:[id number] R[facility] Patient Educationon 04-11-20 Patient Education Urology Urinary [...] nerve stimulation). ? For women, using a pediatrician/medical doctor to prevent urine leaks. This is a [...] after experiencing incontinence. General instructions ? Take vigh-wkl-oazgjie and prescription medicines only as (more content not included)... Normal [facility] Urology Office/Clinic Noteon 04-11-2021 Urology Office/Clinic [...] Jaeger, URL [address] [place] [address] [place] [address]- [phone] Additional Instructions: 6mos. f/u Patient Education Urinary [...] 10., 10/05/ (more content not included)... Normal [facility] Comment on above: Result Comment: Elec tronically Signed By: RYAN MULLER, Vidal Jaeger\.br\Date and Time Signed: 04/11/21 09:41 EDT\.br\Electronically Co-Signed By: Archana Oliveros MA\.br\Date and Time Co-Signed: 04/11/21 09:39 EDT Vital Signs Date Time Vital Sign Value Performing Clinician Anaid carbajal 10-14-2021 08:19-0400 Diastolic blood pressure 91 mm[Hg] Vidal GALICIA [facility] 10-14-2021 08:19-0400 Mean blood pressure 107 mm[Hg] Vidal GALICIA [facility] 10-14-2021 08:19-0400 Systolic blood pressure 139 mm[Hg] Vidal [facility]ALICIA [facility] 10-14-2021 08:04-0400 Blood Pressure Location Vidal GALICIA [facility] [place] [facility] 10-14-2021 08:04-0400 Diastolic blood pressure 93 mm[Hg] Vidal GALICIA [facility] [place] 10-14-2021 08:04-0400 Heart rate 97 /min [facility]ALICIA [facility] 10-14-2021 08:04-0400 Respiratory rate 16 /min Vidal GALICIA [facility] 10-14-2021 08:04-0400 Systolic blood pressure 144 mm[Hg] Vidal GALICIA [facility] [place] [facility] Encounters Encounter Date Encounter Type Care Provider Facility Start: 02-27-2024 ambulatory UNKNOWN PROVIDER Facili ty:[facility] Start: 08-23-2023 ambulatory Colton Holly MA [facility] Start: 08-23-2023 Patient encounter procedure Colton Holly MA Community Outreach Comment on above: Community Outreach ( [facility] Referral/Mammogram) Start: 01-29-2023 End: 01-29-2023 ambulatory Wally Joseph Facility:[facility] Start: 01-29-2023 End: 01-29-2023 ambulatory PHYSICIAN [facility] Work Phone: Start: 01-29-2023 End: 01-29-2023 Discharged Recurring PHYSICIAN [facility] [place] Work Phone: Start: 11-07-2022 End: 11-08-2022 ambulatory NONE LISTED REQUEST Facility: Start: 11-04-2022 ambulatory NONE LISTED REQUEST Facility:[facility] Start: 10-25-2022 End: 10-25-2022 ambulatory NONE LISTED REQUEST Facility: Start: 01-16-2022 End: 01-16-2022 Patient encounter procedure Vidal GALICIA [facility] Start: 10-14-2021 End: 10-14-2021 Patient encounter procedure Vidal GALICIA [facility] Procedures Date Procedure Procedure Detail Performing Clinician Start: 11-04-2020 Partial nephrectomy Alice jenni GALICIA Start: 06-01-2020 Urodynamic studies Roger GALICIA Bilateral tubal ligation Alice GALICIA section Vidal POON Plan of Treatment Date Care Activity Detail Author Start: 06-11-2023 Depression Assessment Depression Ass essment [facility] Start: 2023 Screening for malign ant neoplasm of breast Mammogram Screening [facility] Start: 02-09-2023 Covid-19 Vaccine ( season) Covid-19 Vaccine () [facility] Start: 02-09-2023 Influenza vaccination Influenza Vacc ine (#1) [facility] Start: 2013 Screening for malign ant neoplasm of cervix HPV Testing [facility] Start: 2004 Screening for malign ant neoplasm of cervix Pap Testing [facility] Start: 2002 Hepatitis B Vaccine (1 of 3 - 19+ 3-dose series) Hepatitis B Vaccine (1 of 3 - 19+ 3-dose series) [facility] Start: 2002 Urine microalbumin profile DTaP,Tdap,Td Vaccine (1 - Tdap) [facility] Start: 2001 Hepatitis C screening Hepatitis C Sc amaury [facility] Start: 2001 HIV screening HIV Screening [facility] Start: 1989 Pneumococcal vaccination Pneum ococcal Vaccine (1 of 2 - PCV) [facility] Immunizations Immunization Date Immunization Notes Care Provider Zelalem lubnabrodie 03-27-2019 influenza virus vaccine, unspecified formulation Colton Holly MA [facility] NEGATED: Highlighted row has not occurred!05-28-2020 influenza virus vaccine, unspecified formulation Vidal GALICIA [facility] Payers Date Payer Category Payer Self-pay 2020 Private Health Insurance [employer] [id number] 2020-Present [address] [address] [place] [address] PPO [id number] 1983 Unknown [id number] 1983 Unknown [id number] 1983 Unknown [id number] 1983 Unknown [id number] 1959 Unknown [id number] 1959 Unknown [id number] 1959 Unknown Medicaid [facility] [id number] Unknown [id number] Unknown Richard ROBLES/BS [id number] Social History Date Type Detail Facility Start: 02-06-2020 Tobacco smoking status Heavy t obacco smoker (finding) [facility] Tobacco smoking status Never [facility] [employer] Start: 10-15-2020 End: 07-06-2021 Sex Assigned At Female [facility] [employer] Start: 1985 Sex Assigned At Female F [facility] Start: 10-15-2020 [facility] Start: 10-15-2020 Tobacco use and exposure Smokeless tobacco non-user [facility] Start: 10-15-2020 End: 07-06-2021 History of Social function [facility] Start: 10-09-2020 Gender identity Identifies as female gender (finding) [facility] Start: 10-09-2020 Sexual orientation Heterosexual (fin ding) [facility] Progress note 08-28-2023 Note Date & Type Note Facility 08-28-2023 Note HNO ID: [id number] Author: COLTON HOLLY MA Service: ? Author Type: Visual Educator Type: Progress Notes Filed: 08/28/2023 10:07 Note Text: [facility] Provider Action/FYI 2nd attempt; LVM asking for a return call. Colton Holly MA [facility] History of Present illness Narrative 08-28-2023 [...] Colton Holly MA documented in this encounter [facility] Progress note 08-23-2023 Note Date & Type Note Facility 08-23-2023 Note HNO ID: [id number] Author: COLTON HOLLY MA Service: ? Author Type: Visual Educator Type: Progress Notes Filed: 08/28/2023 10:07 Note Text: [facility] Provider Action/FYI Mammogram referral received. Attempted to make contact with the patient for scheduling, no answer. LVM asking for a return call. I will follow up. Colton Holly MA [facility] Clinical Note 08-23-2023 Note Date & Type Note Facility 08-23-2023 Note [facility] LEAH FREEMAN ([id number]) 1985 F Date Time Provider Department 08/23/23 COLTON HOLLY During your visit today, we recorded the following information about you: Colton Holly MA 08/28/2023 10:07 AM Signed [facility] Provider Action/FYI Mammogram referral received. Attempted to make contact with the patient for scheduling, no answer. LVM asking for a return call. I will follow up. CARY Del Real Tracie, MA 08/28/2023 10:07 AM Signed [facility] Provider Action/FYI 2nd attempt; LVM asking for a return call. Colton Holly MA Allergies As of Date: 08/23/2023 (No Known Allergies) Date Reviewed: 07/06/2021 Reviewed by: Cee Vee APRN.[employer] ASSEMBLER - Fully Assessed Reason for Visit: Community [...] Encounter Status:Closed by COLTON HOLLY on 08/28/23 [facility] Discharge instructions 10-14-2021 Note Date & Type Note Facility 10-14-2021 Hospital Discharg e instructions Follow Up Care 10/14/2021 08:47:28 With:RYAN MULLER, Vidal Jaeger, URL Address: [facility] [address] [place] [address] [phone] When: Unknown [facility] Hospital Discharge instructions 10-14-2021 Note Date & [...] (electrical nerve stimulation). For women, using a pediatrician/medical doctor to prevent urine leaks. This is a [...] right after experiencing incontinence. General instructions Take egmi-kvg-huqgigf and prescription medicines only as told by [...] 07/05/2005 Document Revised: 06/07/2018 Document Reviewed: 09/06/2017 [employer] Patient Education 2020 [employer]. 10/14/2021 07:42:54 Overactive Bladder, Adult Overactive Bladder, [...] fried and sweet foods. General instructions Take phbo-wpi-gecuhyn and prescription medicines only as told by [...] 03/24/2010 Document Revised: 09/18/2019 Document Reviewed: 06/13/2018 [employer] Patient Education 2020 [employer]. Follow Up Care 04/11/2021 09:39:53 With:RYAN MULLER, Vidal Jaeger, URL Address: [facility] [address] [place] [address]- When:01/14/2022 [facility] Evaluation + Plan note Note Date & Type Note Facility Evaluation + Plan note Future Appointments Appointment Date:01/16/2022 03:00:00 PM Scheduled Provider:Vidal GALICIA MD Location:[facility] Appointment Type:URO Office Visit [facility] Evaluation note Note Date & Type Note Facility Evaluation note No assessment information availa [facility] Work Phone: Hospital course Narrative Note Date & Type Note Facility Hospital course Narrative No data available for this section [facility] Progress note Note Date & Type Note Facility Progress note No data available for this section [facility] Summary Purpose Family History No Family History [...] Active Wally Joseph NP-C Attending Provider Active Clothes Model Relationship Specialty Start Date End Date Yash Simpson MD PCP - General Family Medicine 05/28/20 INFORMATION SOURCE (unrecogn ized section and content) DATE CREATED AUTHOR 01/17/2022 [facility] DATE CREATED AUTHOR AUTHOR'S ORGANIZ ATION 11/17/2022 [facility] DATE CREATED AUTHOR AUTHOR'S ORGANIZ ATION 01/30/2023 [facility] DATE CREATED AUTHOR AUTHOR'S ORGANIZ ATION 08/29/2023 [facility] DATE CREATED AUTHOR AUTHOR'S CARLEY ARREDONDO 03/03/2024 [facility] Goals (unrecognized section and content) Goals may be documented in a n alternate section Source Comments (unrecognize d section and content) In the event this informatio n is protected by the [facility] Confidentiality of Alcohol and Drug Abuse Patient Records regulations: The Federal rules restrict any use of the information to criminally investigate or prosecute any alcohol or drug abuse patient.[facility] Reason for Visit (unrecogniz ed section and [...] BE BASED ON THE PRIMARY CLINICAL RECORDS. [employer] [facility]. provides no warranty or guarantee of the accuracy or completeness of information in this document.
[2024-08-27 11:22] LABS: Estimated Average Glucose 128 mg/dL; Glycohemoglobin A1C 6.1 % (4.5-6.2)
== END 2024-08-27 08:10 | disposition home or self-care (01) ==
LOC: LAB 08:11
PROVIDERS: PCP Nurse Practitioner Family; Visit Provider Nurse Practitioner Family
DX: R73.03 Prediabetes (principal)
CPT/HCPCS: 36415; 83036

== ENCOUNTER 2025-04-28 13:50 | Outpatient (OUT) | payer OTHER, SELFPAY ==
--- OUTSIDE RECORDS SUMMARY | 2025-04-28 13:55 | XMS_ITS | CCD ---
Author Organization [facility] Inform ion Partnership [facility] Care Team Providers Care Office Support Name Role Phone Yash Simpson. Primary Care Physician [phone] REQUEST, NONE LISTED Primary Care Unavaila ble [...] Unavailable NO FAMILY, PHYSICIAN Primary Care Provider Unamamadou Joseph, JHON Bazzi Attending Provider Yash Simpson MD Primary Care Provider PROVIDER, UNKNOWN Admitting Unavailable PROVIDER, UNKNOWN Attending Unavailable BRITTNEY TREJO Primary Care Unavailable LOTUS KAPADIA Referring Unavailable Medications Current Medications MedicationDrug Class(es)DatesSig (Normalized)Sig (Original)albuterol 90 mcg/inh inhalation powder (1 source)Start: 73-18-1384hxae 1 puff(s) by inhalation every six hoursalbuterol 90 mcg/inh inhalation powder puff(s), Inhalation, q6hr, Refill(s) 0 Start Date: 02/06/20 Status: Bcotxbn96 hr mirabegron 50 mg extended release oral tablet (2 sources)beta3-Adrenergic AgonistStart: 10-14-2021 End: 97-82-2592mldl 1 tablet by mouth once dailyMyrbetriq 50 mg oral tablet, extended release 50 mg = 1 tab(s), Oral, Daily, X 90 day(s), # 90 tab(s), Refills(s) 3, Pharmacy: [id number], 150, cm, 10/14/21 8:14:00 EDT, Height/Length Dosing, 82.1, kg, 10/14/21 8:14:00 EDT, Weight Dosing Start Date: 10/14/21 Stop Date: 10/09/22 Status:Rnvvcuu74 actuat olodaterol 0.0025 mg/actuat / tiotropium 0.0025 mg/actuat inhalation spray (2 sources)Anticholinergic, beta2-Adrenergic AgonistStart: 55-87-0628Famqnha Respimat 2.5 mcg-2.5 mcg inhalation aerosol puff(s), Inhalation, BID, Refills(s) 0 Start Date: 05/28/20 Status: OrderedStart: 28-32-6370afcnaikaxd-olodaterol (STIOLTO RESPIMAT) 2.5-2.5 mcg/actuation puff(s), Inhalation, BID, Refills(s)0 0 11/10/2019 ActiveComment on above: puff(s), Inhalation, BID, Refills(s) 0Stiolto Respimat 2.5 mcg-2.5 mcg inhalation aerosol (1 source)Start: 03-77-6008Xzatndl Respimat 2.5 mcg-2.5 mcg inhalation aerosol puff(s), Inhalation, BID, Refills(s) 0 Start Date: 05/28/20 Status: Ordered Completed/Discontinued Medications MedicationDrug Class(es)DatesSig (Normalized)Sig (Original)acetaminophen 500 mg oral tablet (1 source)Start: 73-22-4682wxpf 2 tablets by mouth every eight hours as needed acetaminophen (TYLENOL EXTRA STRENGTH) 500 mg tablet Take 2 tablets by mouth every 8 hours as needed for Pain. 30 tablet 0 11/04/2020 ActiveComment on above: Take 2 tablets by mouth every 8 hours as needed for Pain.200 actuat albuterol 0.09 mg/actuat dry powder inhaler (3 sources)beta2-Adrenergic AgonistStart: 77-45-0838xncn 1 puff(s) by inhalation every six hoursalbuterol sulfate 90 mcg/actuation breath activated powder inhaler puff(s), Inhalation, q6hr, Refill(s) 0 0 02/06/2020 ActiveStart: 42-18-4883aqsw 1 puff(s) by inhalation every six hoursalbuterol 90 mcg/inh inhalation powder puff(s), Inhalation, q6hr, Refill(s) 0 Start Date: 02/06/20 St atus: OrderedStart: 99-64-5009FSKCAUFIE INHALATIONComment on above: puff(s), Inhalation, q6hr, Refill(s) 0Norethindrone (1 source)Start: 26-27-6130Sqmtrneiyehyv, Contraceptive, (INCASSIA) 0.35 mg tabletomeprazole 20 mg delayed release oral capsule (3 sources)Proton Pump InhibitorStart: 29-12-8657gxhobvdlna (PRILOSEC) 20 mg capsuleStart: 27-40-7935yvbcaosvst Oral, Daily, Refills(s) 0 Start Date: 02/06/20 Status: Ordered Problems Problem ClassificationProblemDateDocumented DateEpisodic/ChronicAbdominal pain (4 sources)Abdominal pain; Translations: [Right flank pain]27-97-8464Rdwhdnja Cancer of kidney and renal pelvis (4 sources)Malignant tumor of kidney; Translations: [Malignant neoplasm of unspecified kidney, except renal pelvis]Onset: 74-04-8950RlmszpsOckpoxivjqwfb symptoms and ill-defined conditions (8 sources)Mixed incontinence; Translations: [Genuine stress incontinence]Onset: 98-58-4081UwiuntiOyafvgbwtgkpv symptoms and ill-defined conditions (10 sources)Sensation as if bladder still full; Translations: [Feeling of incomplete bladder emptying]Onset: 56-84-7822VjrfuvevRopnd connective tissue disease (4 sources)Pain in right arm; Translations: [PAIN IN RIGHT ARM]Onset: 11-07-2022 EpisodicOther connective tissue disease (3 sources)Myalgia, other site; Translations: [MYALGIA OTHER SITE]Onset: 78-89-5022WblorfllXubni diseases of bladder and urethra (4 sources)Urethral stricture; Translations: [Other urethral stricture, female] Onset: 03-58-8129KfdrlfayXvhcb diseases of kidney and ureters (2 sources)Renal hfcp07-11-1755KijemzrIjyri injuries and conditions due to external causes (1 source)Unspecified injury of muscle, fascia and tendon of other parts of biceps, right arm, initial encounter; Translations: [UNS INJ M AND T OTH PRT BIC RT ARM INIT]Onset: 03-08-7642DhvczmylMvutx nutritional; endocrine; and metabolic disorders (1 source)Body mass index 40+ - severely obese; Translations: [Morbid (severe) obesity due to excess calories]Onset: 206820-61-1088XziylktDyfaf screening for suspected conditions (not mental disorders or infectious disease) (1 source)Encounter for screening mammogram for malignant neoplasm of breast; Translations: [Encounter for screening mammogram for malignant neoplasm of breast]Onset: 28-47-5334UujypvhpYozgntbvg-related disorders (1 source)Nicotine dependence; Translations: [Nicotine dependence, unspecified, uncomplicated]Onset: 998378-62-6491CmkfdxuYgzetkswizvn (2 sources)Finding of sensation of wykqety75-89-7803Zlwuhykkxlyd (1 source)Lateral epicondylitis, right elbow; Translations: [Lateral epicondylitis, right elbow]Onset: 39-65-1323Ujenslo tract infections (2 sources)Urinary tract infectious rlnrqaf03-16-3409Iymxdzll Results Test NameValueInterpretationReference RangeFacilityTelephone Encounteron 06-92-3032Nscbzynbiagro Authentication Interface Message Text03/30/25 lvm repeat mammogram is needed. [facility]NoT[facility] VoltDB SystemTelephone Encounteron 14-83-2700Pvswpeucdlyim Authentication Interface Message Text03/20/25 lvm again to schedule breast imaging. BMAdviceScene Enterprises VoltDB SystemProgress Noteson 46-53-6278Wthpcxmhltmxp Authentication Interface Message TextBreast imaging reviewed by radiologist. Impression/Recommendation: XCCL and repeat MLO with the nipple in profile is recommended. Repeat images (left MLO and XCCL) are needed for technical reasons. Orders placed per radiologist recommendations. Patient will be contacted to schedule appropriate appointments.NormalThe VoltDB SystemTelephone Encounteron 22-41-6883Tmrajcenbmtyp Authentication Interface Message Text03/10/25 lvm need repaet mammogram due to technical reasons. BMNormalThe [facility] SystemMG MAMMO SCREEN BILAT ANNALISA W/CADon 69-85-6622EP MAMMO SCREEN BILAT ANNALISA W/CADEXAM: BILATERAL SCREENING MAMMOGRAM W/TOMOSYNTHESIS AND CAD CLINICAL HISTORY: Patient is 39 years old and is seen for screening. The patient has a history of kidney cancer at age 36. The patient has no family history of breast cancer. COMPARISON: The present examination has been compared to a prior imaging study performed at [facility] on 02/27/2024. TECHNIQUE: The following mammographic views were obtained: bilateral CC, CC with tomosynthesis, MLO and MLO with tomosynthesis. Computer-aided detection was utilized by the radiologist in the interpretation of this examination. MAMMOGRAM FINDINGS: There are scattered areas of fibroglandular density. There is suboptimal positioning of the left breast with incomplete inclusion of the posterior breast tissue and the lateral breast tissue. There is lateral rotation of the breast on the MLO view resulting in incomplete visualization of the posterior lateral tissue. There is no definite evidence of malignancy within the visualized portions of the breast. Repeat imaging of the left breast is recommended for complete evaluation. No suspicious masses, calcifications or other abnormalities are seen in the right breast. IMPRESSION: XCCL and repeat MLO with the nipple in profile is recommended. Repeat images (left MLO and XCCL) are needed for technical reasons. There is no evidence of malignancy in the right breast. BI-RADS Category 0: Incomplete, Needs Additional Imaging Evaluation The Breast Center Coordinator and Navigator will place a reflexive Epic order, contact and schedulethe appropriate appointments. RISK ASSESSMENT: Estimated lifetime breast cancer risk: Average (less than 15%, as per the Tyrer-Cuzick/BEAR model) NCI Lifetime Risk Score: 9.8%NormalThe [facility] Hospital SystemMRI ELBOW RT WO CONon 35-79-3765XID ELBOW RT WO CONEXAM: MRI ELBOW RT WO CON HISTORY: Pain [...] Electronically authenticated by: JULIANE HWANG Date: 2022-11-07 10:53NoMercy Health Willard HospitalXR ELBOW RT MIN 3 VIEWSon 97-59-8460PQ ELBOW RT MIN 3 VIEWS EXAM: XR [...] joint spaces are normal. There are no degenerative/arthritic changes. There is no joint effusion at the elbow. No soft tissue abnormality is seen. IMPRESSION: Unremarkable right elbow series. MRI of the right elbow would be performed if there is clinical concern for internal derangement. Electronically authenticated by: DRISS BREWSTER Date: 2022-10-25 04:24NormPremier Health Upper Valley Medical CenterXR HUMERUS RT MIN 2 Von 95-58-7147PI HUMERUS RT MIN 2 VEXAM: XR HUMERUS RT MIN 2 V HISTORY: [...] Electronically authenticated by: CLAUDIA GIMENEZ Date: 2022-10-25 04:23Normal [facility] For RehabilitationPatient Educationon 92-12-3035Tdewpco EducationObstetrics and Gynecology Overactive Bladder, Adult Overactive bladder [...] You may also have very sensitive muscles thatmake your bladder squeeze too soon. These symptoms [...] as stroke, dementia, Parkinson's disease, or multiple sclerosis(MS). ? Eat or drink things that irritate [...] pelvic floor muscles, which support your bladder. Toningthese muscles can help you control urination, even [...] weight loss methods that would work best foryou. ? Diet changes. This may include reducing [...] instructions ? Take ove (more content not included)...[facility] Urology Office/Clinic Noteon 11-94-0197Vamnizu Office/Clinic NoteChief Complaint 6 month follow up HPI Staff [...] and urge incontinence. Will send prescription to [facility] in [place]. Follow-up With When Contact Information RYAN MULLER, ANTHONY [place] In 3 months 01/14/2022 EDT [facility] [address] [place] [address]- Additional Instructions: Patient Education Urinary Incontinence Overactive Bladder, Adult I, Bebe Wright, personally scribed for Dr. Galicia on 10/14/2021 08:48:14. . Documentation recorded by the scribBebe linares, accurately reflects the services(s) I performed and [...] frequency UTI (urinary tr (more content not included)...[facility] Comment on above:Result Comment: Electronically Signed By: Vidal GALICIA MD\.br\Date and Time Signed: 10/14/21 08:52 EDT\.br\Electronically Co-Signed By: Bebe Wright\.br\Date and Time Co-Signed: 10/14/21 08:48 EDTLab Reportson 11-15-5398Xnu [id number]#1.00CD:[address] [place], [place] [address]RAD - CT Reporton 80-25-9702SHJ - CT Report [id number]#1.00CD:[address] [place], [place] [address]Pre-Certification Formon 18-53-1678Ahu-Certification Form [id number]#1.00CD:[address] [place], [place] [address]Reminderson 45-14-0851Ygilctnfm From: Mitali Clark To: ROBERT Galicia; Sent: 04/25/2021 13:46:17 EST Show up: 08/23/2021 14:46:00 EDT Subject: CT abd/pel with contrast Due Date/Time: 09/23/2021 14:46:00 EDT Reminder Message Pt. needs CT AP w/ contrast prior to 10/14/2021 appt. left vm for pt to call office [facility]Lab Reportson 77-08-5291Lgc [id number]#1.00CD:[address] [place], [place] [address]RAD - CT Reporton 02-23-7070BGL - CT Report [id number]#1.00CD:[address] [place], [place] [address]RAD - MISCon 89-76-4866RNK - MISC [id number]#1.00CD:[address] [place], [place] [address]Pre-Certification Formon 10-66-0035Tva-Certification Form [id number]#1.00CD:[address] [place], [place] [address]Reminderson 58-10-3614Swsmbyhud From: Ashanti Arellano To: EU - Clinical; Sent: 04/11/2021 09:46:13 EDT Show up: 04/15/2021 09:46:00 EDT Subject: CT scan and CXR Due Date/Time: 04/18/2021 09:46:00 EST Reminder/Recall Order was faxed to [facility]emin Guevara for CT scan Abd/pelvis with and CXR to be scheduled after auth approval SHOW PRW results, pt to be called no results yet no results Pt was schedule 04/22/21 @ [facility] at 2:30- results will be in her chart Sunday- please send to PRW to review thank [facility] Ambulatory Clinical Summaryon 33-35-4345Dpzmmaujat Clinical Summary {26-e0-66-3p-c0-i8-7a-2n-0t-98-21-24-8e-89-35-1e}CD:791597LeltzqFjbiamSelect Medical TriHealth Rehabilitation HospitalPatient Educationon 07-60-9902Jeaxaaw EducationUrology Urinary Incontinence Urinary incontinence refers to a condition in which a person is unable to control where and when topass urine. A person with this condition will [...] the bladder, urethra, and sphincter can store andrelease urine. There are different types of urodynamic [...] of moderate-intensity exercise every week. Ask your healthcare provider which activities are safe for you. [...] urges. This can include distraction techniques or controlledbreathing exercises. ? Medicines to relax the bladder muscles and prevent bladder spasms. ? Medicines to help slow or prevent the growth of a man's prostate. ? Botox injections. These can help relax the bladder muscles. ? Using pulses of electricity to help change bladder reflexes (electrical nerve stimulation). ? For women, using a program medical director to prevent urine leaks. This is a [...] after experiencing incontinence. General instructions ? Take fowl-dkt-bnqzxut and prescription medicines only as (more content not included)...[facility] CenterUrology Office/Clinic Noteon 42-81-1804Hdbpwez Office/Clinic NoteChief Complaint 7 month f/u HPI Staff 35 [...] to call the office if sheencounters any issuesprior. Pt. acknowledges understanding. 2. Mixed incontinence (N39.46: Mixed incontinence) Ongoing. Moderate - severe. Stress incontinence is worse. Pads changed 2-3x/day. I discussed with the pt. possibly considering a sling procedure but she understands that we'll need to do a cystoscopyfirst. Pt. will consider this. 3. UTI (urinary [...] Information RYAN MULLER, Vidal Jaeger, URL [address] [place] [address]- [phone] Additional Instructions: 6mos. f/u Patient Education Urinary Incontinence IArchana , personally scribed for Dr. Galicia on 04/11/2021 09:39:09. . Documentation recorded by the scribeArchana, accurately reflects the services(s) I performed and [...] pack years: 10., 10/05/ (more content not included)...[facility] HospitalComment on above:Result Comment: Electronically Signed By: Vidal GALICIA MD\.br\Date and Time Signed: 04/11/21 09:41 EDT\.br\Electronically Co-Signed By: Archana Oliveros MA\.br\Date and Time Co-Signed: 04/11/2109:39 EDT Vital Signs Date TimeVital SignValuePerforming JjjjvsqrbKdzxbdkn53-94-7535 08:19-0400 Diastolic blood mm[Hg]Vidal GALICIA [facility] 05-06-2022 08:19-0400Mean blood bryktire737 mm[Hg] Vidal GALICIA [facility] 05-06-2022 08:19-0400Systolic blood fahqtpaz864 mm[Hg] Vidal GALICIA [facility] 05-06-2022 08:04-0400Blood Pressure LocationPatrick [employer]ater [employer] [facility] 05-06-2022 08:04-0400Diastolic blood mvrhkyen60 mm[Hg] Vidal GALICIA [facility] 05-06-2022 08:04-0400Heart rate97 /minPamAPPnbri [employer] [facility] 05-06-2022 08:04-0400Respiratory rate16 /minPamAPPnbri [employer] [facility] 05-06-2022 08:04-0400Systolic blood vfkaqcbl346 mm[Hg] Vidal GALICIA [facility] Encounters Encounter DateEncounter TypeCare ProviderFacilityStart: 23-10-3606xvedbudbrq UNKNOWN PROVIDERFacility:METROHealthStart: 38-12-4795czibsuwtviPpzeeo Reed [facility] MAINStart: 47-44-1200Cghfymt encounter procedureTralibertad Holly MA Community OutreachComment on above:Community Outreach ([place] Referral/Mammogram)Start: 01-29-2023 End: 64-52-8040onzwhsbugqYesquvp Jluis RioserFacility:[facility] Hospitaltart: 01-29-2023 End: 83-09-1997bortaptqkaZIXJWAHJJ NO [facility] Work Phone: Start: 01-29-2023 End: 59-32-5916Brtejaxjgw RecurringPHYSICIAN NO [facility]-Physical Therapy [place] Work Phone: start: 11-07-2022 End: 44-94-9272rcooypuzmgKA NONE LISTED REQUESTFacility:I9Blkvm: 11-04-2022 ambulatoryDR NONE LISTED REQUESTFacility:D6Pbser: 10-25-2022 End: 50-64-8272bagplswupfXK NONE LISTED REQUESTFacility:N1Pdgog: 01-16-2022 End: 29-28-7070Dkovyyz encounter procedurePaTimeful [facility] start: 10-14-2021 End: 62-71-7244Bespnpl encounter procedureGeneExcel R [employer] [facility] Procedures DateProcedureProcedure DetailPerforming ClinicianStart: 96-86-7818Uixvbeh nephrectomyPaanydooR Start: 43-59-3033Tiysnbkpqt studiesPaanydooR Bilateral tubal ligationiConText Cesarean sectioniConText Plan of Treatment DateCare ActivityDetailAuthorStart: 07-79-8708Opoxiojrye AssessmentDepression AssessmentMercy Health Defiance Hospitaltart: 31-19-0034Wgalabwmy for malignant neoplasm of breastMammogram ScreeningMercy Health Defiance Hospitaltart: 84-35-1445Tppww-19 Vaccine ( season)Covid-19 Vaccine ( season)[facility] Hospitaltart: 61-52-0349Prkcvxeqj vaccinationInfluenza Vaccine (#1)[facility] Hospitaltart: 66-93-9450Ayrgxmgtf for malignant neoplasm of cervixHPV TestingCleveland Clinic Children'S Hospital For Rehabilitation Start: 16-94-9634Gwpgcdlgr for malignant neoplasm of cervixPap TestingMercy Health Defiance Hospitaltart: 48-99-7885Tytkyaepv B Vaccine (1 of 3 - 19+ 3-dose series)Hepatitis B Vaccine (1 of 3 - 19+ 3-dose series)[facility] Hospitaltart: 30-71-2500Fqekq microalbumin profileDTaP,Tdap,Td Vaccine (1 - Tdap)[facility] Hospitaltart: 05-09-7361Fjywetwkj C screeningHepatitis C ScreeningMercy Health Defiance Hospitaltart: 74-89-6845ZPO screeningHIV ScreeningMercy Health Defiance Hospitaltart: 1991 Pneumococcal vaccinationPneumococcal Vaccine (1 of 2 - PCV)[facility] Immunizations Immunization DateImmunizationNotesCare RufzzgfzCumdelmb37-72-9258hyiipeeta virus vaccine, unspecified formulationTracie Isiah [facility] ClinicNEGATED: Highlighted row has not occurred!60-87-3367hkulxgnju virus vaccine, unspecified formulationPatricbri GALICIA [facility] Payers DatePayer CategoryPayerPolicy [id number] Health InsuranceREG[facility]AL MED[facility] CHOICE [employer] GENERIC [id number] 2020- Present [address] [address] [place] [address] PPO [id number] 1962U[id number] /[id number] Social History DateTypeDetailFacilityStart: 73-18-6069Ecljhjd smoking statusHeavy tobacco smoker (finding)[facility] Tobacco smoking statusNeverExec[facility] of [facility] start: 10-15-2020 End: 76-96-3756Hcm Assigned At [facility] start: 62-98-6364Kye Assigned At [facility] Hospitaltart: 52-37-4514Uqkkzhe smoking status NHISSmokes tobacco dailyMercy Health Defiance Hospitaltart: 76-42-4301Uaolqtv use and exposureSmokeless tobacco non-userMercy Health Defiance Hospitaltart: 10-15-2020 End: 52-69-8706Eiyjgbd of Social functionMercy Health Defiance Hospitaltart: 36-78-3830Twogzv identityIdentifies as female gender (finding)[facility] Hospitaltart: 10-09-2020 Sexual orientationHeterosexual (finding)[facility] Progress note 08-28-2023 Note Date & FpboLhdmXjpnzbbz23-68-7558 NoteHNO ID: [id number] Author: COLTON HOLLY MA Service: ? Author Type: Ore Trimmer Type: Progress Notes Filed: 08/28/2023 10:07 Note Text: [facility] Provider Action/FYI 2nd attempt; M asking for a return call. Colton Holly [facility] History of Present illness Narrative 08-28-2023 Note Date & CwsaWeqoZtrkadyu04-23-1253 History of Present illness Narrative* Colton Holly MA - 08/28/2023 10:07 AM EDT [facility] Provider Action/FYI 2nd attempt; LVM asking for a return call. Colton Holly MA * Colton Holly MA - 08/23/2023 1:27 PM EDT [facility] OUT[facility] Provider Action/FYI Mammogram referral received. Attempted to make contact with the patient for scheduling, no answer. LVM asking for a return call. I will follow up. Colton Holly MA documented in this encounterCleveland Clinic Children'S Hospital For Rehabilitation Progress note 08-23-2023 Note Date & ZcwvSytkNomsynvk50-76-6532 NoteHNO ID: [id number] Author: COLTON HOLLY MA Service: ? Author Type: Ore Trimmer Type: Progress Notes Filed: 08/28/2023 10:07 Note Text: [facility] OUTREACH Provider Action/FYI Mammogram referral received. Attempted to make contact with the patient for scheduling, no answer. LVM asking for a return call. I will follow up. Colton Holly [facility] Clinical Note 08-23-2023 Note Date & UpggVkxlSbjwqucm36-40-5624 NotePatient Outreach ([place]) LEAH FREEMAN ([id number]) 1985 F Date Time Provider Department 08/23/23 COLTON HOLLY During your visit today, we recorded the following information about you: Colton Holly MA 08/28/2023 10:07 AM Signed [facility] Provider Action/FYI Mammogram referral received. Attempted to make contact with the patient for scheduling, no answer. LVM asking for a return call. I will follow up. CARY Del Real Tracie, MA 08/28/2023 10:07 AM Signed [facility]RE[facility] Provider Action/FYI 2nd attempt; LVM asking for a return call. Colton Holly MA Allergies As of Date: 08/23/2023 (No Known Allergies) Date Reviewed: 07/06/2021 Reviewed by: Cee Vee APRN.RN CHARGE - Fully Assessed Reason for Visit: Community Outreach [Other] Cmt: irlpool Referral/Mammogram Prescriptions as of 08/28/2023 - acetaminophen [...] 11/25/2020 Encounter Status:Closed by [facility]TON [facility]/23[facility]-14-2021 Note Date & VlwwWpehDgqnzjat01-06-0484 Hospital Discharge instructions Follow Up Care 10/14/2021 08:47:28 With:RYAN MULLER, Vidal Jaeger, URL Address: [facility] [address] [place] [phone] When: Unknown [facility] Hospital Discharge instructions 10-14-2021 Note Date & KqkqGnyeNqpornaw48-51-9254 Hospital Discharge instructions Patient Education 10/14/2021 07:43:00 Urinary Incontinence Urinary Incontinence Urinary incontinence refers to a condition in which a person is unable to control where and when topass urine. A person with this condition will urinate when he or she does not mean to (involuntarily). What are the causes? This condition may be caused by: Medicines. Infections. Constipation. Overactive bladder muscles. Weak bladder muscles. Weak pelvic floor muscles. These muscles provide support for the bladder, intestine, and, in women,the uterus. Enlarged prostate in men. The prostate [...] (electrical nerve stimulation). For women, using a program medical director to prevent urine leaks. This is a [...] right after experiencing incontinence. General instructions Take wgob-efx-whmjdbj and prescription medicines only as told by [...] is unable to control where and when topass urine. This condition may be caused by [...] 07/05/2005 Document Revised: 06/07/2018 Document Reviewed: 09/06/2017 Printed Piece Patient Education 2020 [employer]. 10/14/2021 07:42:54 Overactive Bladder, Adult Overactive Bladder, [...] You may also have very sensitive muscles thatmake your bladder squeeze too soon. These symptoms [...] fried and sweet foods. General instructions Take tglb-qcs-onnvitf and prescription medicines only as told by your health care provider. If you were prescribed an antibiotic medicine, take it as told by your health care provider. Do notstop taking the antibiotic even if you start [...] 03/24/2010 Document Revised: 09/18/2019 Document Reviewed: 06/13/2018 Printed Piece Patient Education 2019 [employer]. Follow Up Care 04/11/2021 09:39:53 With:RYAN MULLER, Vidal Jaeger, URL Address: [facility] [address] [place] [id number]- When:01/14/2022 [facility] Evaluation + Plan note Note Date & TypeNoteFacilityEvaluation + Plan note Future Appointments Appointment Date:01/16/2022 03:00:00 PM Scheduled Provider:Vidal GALICIA MD Location:[facility] Appointment Type:URO Office Visit [facility] Evaluation note Note Date & TypeNoteFacilityEvaluation noteNo assessment information available [facility] Work Phone: Hospital course Narrative Note Date & TypeNoteFacilityHospital course Narrative No data available for this section [facility] Progress note Note Date & TypeNoteFacilityProgress note No data available for this section [facility] Summary Purpose Family History No Family [...] FAMILY Primary Care Provider Active Wally Joseph , ADRIANA-Hermann ProviderActiveTeam MemberRelationship SpecialtyStart DateEnd Date Yash Simpson MD PCP - GeneralFamily Glvzzvyz26/18/20 INFORMATION SOURCE (unrecogn ized section and content) DATE CREATED AUTHOR 01/17/2022 [facility] DATE CREATED AUTHOR AUTHOR'S ORGANIZ ATION 11/17/2022 [facility] DATE CREATED AUTHOR AUTHOR'S ORGANIZ ATION 01/30/2023 [facility] DATE CREATED AUTHOR AUTHOR'S ORGANIZ ATION 08/29/2023 [facility] DATE CREATED AUTHOR AUTHOR'S ORGANIZ ATION 03/31/2025 [facility] Goals (unrecognized section and content) Goals may be documented in a n alternate section Source Comments (unrecognize d section and content) In the event this informatio n is protected by the Federal Confidentiality of Alcohol and Drug Abuse Patient Records regulations: The Federal rules restrict any use of the information to criminally investigate or prosecute any alcohol or drug abuse patient.[facility] Reason for Visit (unrecogniz ed section and content) ReasonOnset DateCommentsCommunity Zngekamh08/14/2024[facility] Referral/Mammogram FOR RECORDS PERTAINING TO PATIENTS WHO ARE [...] BE BASED ON THE PRIMARY CLINICAL RECORDS. [facility]. provides no warranty or guarantee of the accuracy or completeness of information in this document.
--- NOTE | 2025-04-28 13:58 | MM_ITS ---
Patient Name: AKBAR FREEMAN MR#: [id number] : 1985 Exam Date: 04/28/2025 Ordering Doctor: BRITTNEY TREJO CNP RADIOLOGY REPORT PROCEDURE: MM TOMOSYNTHESIS DIAGNOSTIC LT COMPARISON: MAMMO SOPHIA SCREEN, 03/04/2025. MAMMO SOPHIA SCREEN, 02/27/2024. INDICATIONS: Abnormal Mammogram Calculator Name NCI Breast Cancer Risk Assessment Tool 5 Year Breast Cancer Risk Not Reported. Lifetime Breast Cancer Risk Not Reported. Personal Breast Cancer No Personal Ovarian Cancer No Treatments None Family Cancers None LOCATION: [facility] BREAST COMPOSITION: There are scattered areas of fibroglandular density. FINDINGS: DIAGNOSTIC CATEGORY 1--NEGATIVE. LEFT BREAST: No significant suspicious finding. RECOMMENDATIONS: ROUTINE MAMMOGRAM AND CLINICAL EVALUATION IN 12 MONTHS. Dictated by: Jose A Pemberton DO on 04/28/2025 at 14:36 Approved by: Jose A Pemberton DO on 04/28/2025 at 14:39
== END 2025-04-28 13:51 | disposition home or self-care (01) ==
LOC: MAMMO 13:50
PROVIDERS: PCP Nurse Practitioner Family; Visit Provider Nurse Practitioner Family
DX: R92.8 Other abnormal and inconclusive findings on diagnostic imaging of breast (principal)
CPT/HCPCS: 77065; G0279